=== PATIENT | male | born 1965 | race Two or more races ===

== ENCOUNTER 2019-12-07 10:10 | Outpatient (REF) | payer OTHER, SELFPAY | END 2019-12-07 10:11 | disposition home or self-care (01) | LOC: HO.LAB 10:10 | PROVIDERS: Visit Provider Internal Medicine | DX: Z20.828 Contact with and (suspected) exposure to other viral communicable diseases (principal) | CPT/HCPCS: 87635 ==

== ENCOUNTER 2020-10-10 10:16 | Outpatient (REF) | payer OTHER, SELFPAY ==
--- NOTE | ~2020-10-10 | XR_ITS ---
EXAMINATION: XR KNEE, RIGHT CLINICAL INFORMATION: Pain right knee COMPARISON: None TECHNIQUE: Four views of the right knee. FINDINGS: There is mild to moderate suprapatellar joint effusion. No visible acute fracture, dislocation or lytic process seen. No bony erosive changes. XR/XR knee RT 4V IMPRESSION: Mild to moderate suprapatellar joint effusion. No visible acute fracture, dislocation or lytic process.
== END 2020-10-10 10:17 | disposition home or self-care (01) ==
LOC: HO.HMGCX 10:16
PROVIDERS: PCP Nurse Practitioner Family; Visit Provider Hospitalist
DX: M25.561 Pain in right knee (principal)
CPT/HCPCS: 73564

== ENCOUNTER 2021-08-15 09:45 | Outpatient (REF) | payer OTHER, SELFPAY ==
[2021-08-15 11:14] LABS: MANUAL DIFF FLAG NO
[2021-08-15 11:20] LABS: Appearance Urine CLEAR; Basophils Percent Auto 0.8 % (0-2); Color Urine YELLOW; Eosinophils Absolute Auto 0.1 X10*3/uL (0.0-0.4); Eosinophils Percent Auto 2.1 % (0-4); Glucose Urine UA NEG (NEG); Hematocrit 49.2 % (42.0-52.0); Imm Gran Abs Auto 0.02 X10*3/uL (0.00-0.03); Imm Gran Pct Auto 0.5 % (0.0-0.4); Leukocyte Esterase Urine NEG (NEG); Lymphocytes Absolute Auto 1.4 X10*3/uL (1.2-4.9); Mean Corpuscular HGB Conc 34.6 g/dl (31.0-36.0); Mean Corpuscular Hemoglobin 30.7 pg (27.0-33.0); Mean Corpuscular Volume 88.8 fL (80.0-98.0); Mean Platelet Volume 10.1 fL (9.4-12.4); Monocytes Absolute Auto 0.5 X10*3/uL (0.1-1.2); Monocytes Percent Auto 11.6 % (2-11); Neutrophils Absolute Auto 1.9 x10*3/uL (2.0-8.3); Nitrite Urine NEG (NEG); Platelet Count 213 X10*3/uL (160-400); Red Blood Count 5.54 X10*6/uL (4.60-5.80); Red Cell Distribution Width 12.2 % (11.0-16.0); Specific Gravity - Urine 1.025 (1.005-1.025); UACC Culture Trigger NO; Urine Blood 1+ (NEG); Urine Ketones NEG (NEG); Urine Protein NEG (NEG-TRACE); White Blood Count 3.9 X10*3/uL (4.8-10.8)
[2021-08-15 11:45] LABS: RBC Urine 0-2 /HPF (0); WBC Urine 0 /HPF (0-4)
[2021-08-15 11:50] LABS: Alanine Aminotransferase 16 U/L (0-40); Albumin Level 4.3 g/dL (3.5-5.0); Alkaline Phosphatase 56 U/L (39-117); Anion Gap 10 (12-20); Aspartate Amino Transferase 16 U/L (5-37); Bilirubin Total 1.1 mg/dL (0.0-1.0); Blood Urea Nitrogen 20 mg/dL (9-16); Calcium 8.8 mg/dL (8.4-10.2); Carbon Dioxide 28 mmol/L (22-29); Chloride 106 mmol/L (96-108); Cholesterol 180 mg/dL; Estimated Glomerular Filt Rate > 60; Glucose Fasting 91 mg/dL (60-99); HDL Cholesterol 50 mg/dL; LDL Cholesterol Calculated 117 mg/dl; Prostate Specific Antigen Scr 0.83 ng/mL (<0.05-4.0); Sodium 140 mmol/L (135-145); TSH reflex Free T4 1.07 uIU/mL (0.32-4.0); Total Protein 6.7 g/dL (6.5-8.0); Triglycerides 66 mg/dL
== END 2021-08-15 09:46 | disposition home or self-care (01) ==
LOC: HO.HMGCLDS 09:45
PROVIDERS: PCP Nurse Practitioner Family; Visit Provider Nurse Practitioner Family
DX: Z00.00 Encounter for general adult medical examination without abnormal findings (principal); Z12.5 Encounter for screening for malignant neoplasm of prostate
CPT/HCPCS: 36415; 80053; 80061; 81001; 84153; 84443; 85025

== ENCOUNTER 2021-11-01 09:14 | Outpatient (REF) | payer OTHER, SELFPAY ==
[2021-11-01 11:08] LABS: MANUAL DIFF FLAG NO
[2021-11-01 11:28] LABS: Urine Cytology See Pathology rpt
[2021-11-01 11:33] LABS: Basophils Percent Auto 0.5 % (0-2); Eosinophils Absolute Auto 0.1 X10*3/uL (0.0-0.4); Eosinophils Percent Auto 1.8 % (0-4); Hematocrit 49.8 % (42.0-52.0); Hemoglobin 17.2 g/dl (14.0-18.0); Imm Gran Abs Auto 0.03 X10*3/uL (0.00-0.03); Imm Gran Pct Auto 0.5 % (0.0-0.4); Lymphocytes Absolute Auto 1.6 X10*3/uL (1.2-4.9); Lymphocytes Percent Auto 28.7 % (20-40); Mean Corpuscular HGB Conc 34.5 g/dl (31.0-36.0); Mean Corpuscular Hemoglobin 30.6 pg (27.0-33.0); Mean Corpuscular Volume 88.5 fL (80.0-98.0); Monocytes Absolute Auto 0.5 X10*3/uL (0.1-1.2); Monocytes Percent Auto 9.2 % (2-11); Neutrophils Absolute Auto 3.3 x10*3/uL (2.0-8.3); Neutrophils Percent Auto 59.3 % (45-73); Platelet Count 210 X10*3/uL (160-400); Red Blood Count 5.63 X10*6/uL (4.60-5.80); White Blood Count 5.6 X10*3/uL (4.8-10.8)
[2021-11-01 11:41] LABS: Appearance Urine Clear; Color Urine Yellow; Glucose Urine UA Negative (Negative); Leukocyte Esterase Urine Negative (Negative); Nitrite Urine Negative (Negative); Urine Blood Negative (Negative); Urine Ketones Negative (Negative); Urine Protein Negative (Neg-Trace)
[2021-11-01 11:48] LABS: Bacteria Urine None Seen (None Seen); Hyaline Casts Urine 0-2 /LPF (0-2); RBC Urine 0-2 /HPF (0-2); Squamous Epithelial Cell Urine 0-2 /HPF (0-2); WBC Urine 0-5 /HPF (0-5)
== END 2021-11-01 09:15 | disposition home or self-care (01) ==
LOC: HO.HMGCLDS 09:14
PROVIDERS: PCP Nurse Practitioner Family; Visit Provider Nurse Practitioner Family
DX: Z00.00 Encounter for general adult medical examination without abnormal findings (principal); D72.819 Decreased white blood cell count, unspecified; R31.29 Other microscopic hematuria
CPT/HCPCS: 36415; 81001; 81003; 85025; 87086; 88112

== ENCOUNTER 2022-05-08 06:41 | Emergency (ER) | payer OTHER, SELFPAY ==
--- NOTE | ~2022-05-08 | CT_ITS ---
EXAMINATION: CT ABDOMEN AND PELVIS WITHOUT CONTRAST CLINICAL INFORMATION: Pain COMPARISON: 11/14/2019 TECHNIQUE: Multidetector volumetric imaging was performed from the superior aspect of the liver through the pubic symphysis. Sagittal and coronal reformatted images were obtained on the technologist's workstation. This CT examination was performed using dose optimization techniques as appropriate, variously including the following: *Automated exposure control *Adjustment of mA and/or kV according to patient size (this includes techniques or standardized protocols for targeted exams where dose is matched to indication/reason for exam; i.e. extremities or head) *Use of iterative reconstruction technique DLP: 469 mGy-cm FINDINGS: LUNG BASES: The visualized lung bases are unremarkable. LIVER, GALLBLADDER, AND BILIARY TREE: Small low-density lesion on image 15. Right lobe. Unable to characterize on this noncontrast study. May well be incidental. The gallbladder is unremarkable with no evidence of radiopaque gallstones, gallbladder wall thickening, or obvious pericholecystic inflammatory changes. PANCREAS: Unremarkable. SPLEEN: Unremarkable. ADRENAL GLANDS: Unremarkable. KIDNEYS AND URETERS: No evidence of stone Possible parapelvic cysts versus focal dilatation of collecting system in the mid to lower pole. Left kidney BLADDER: Unremarkable. GASTROINTESTINAL TRACT: The bowel pattern is nonobstructing. Some scattered diverticula. No evidence for diverticulitis. The appendix is felt to be within normal limits. There is no suspicious fluid collection. Small probable hiatal hernia. ABDOMINAL WALL: Once again beginnings of left inguinal herniation. LYMPH NODES: Normal. VASCULAR: Mild atherosclerotic changes PELVIC VISCERA: Mildly prominent prostate OSSEOUS STRUCTURES: Some mild ankylosis in the SI joint superiorly. No evidence for bony lesion. CT/CT abdomen pelvis wo IV con IMPRESSION: The appendix is within normal limits. No suspicious fluid collection. The bowel pattern is nonobstructing. In the mid to lower pole left kidney findings suggest a parapelvic cyst or possible focal dilatation of the lower pole collecting system. Consider ultrasound to fully evaluate. Other findings are as described above Fleischner guidelines were followed.
[2022-05-08 06:51] VITALS: BP 142/88; PULSE 94; RESP 18; TEMP 36.8; O2SAT 99; BMI 28.7
--- NOTE | 2022-05-08 07:51 | ED.MALEGU ---
HPI - Male Genitourinary General Chief complaint: Urogenital-Male Stated complaint: lower groin pain, frequent urination Time Seen by Provider: 05/08/22 07:29 Source: patient and family (Spouse) Mode of arrival: ambulatory Limitations: no limitations History of Present Illness HPI Narrative: 56-year-old male came in for evaluation of right groin pain. Patient's symptoms started about a month ago with a right groin pain that radiating down to the right testicle pain is dull ache is intermittent moderate blood pain radiates down from the right groin area the right upper area. No fever, no chills, no blood in the urine, no flank pain. Related Data Home Medications Medication Instructions Recorded Confirmed No Known Home Meds 10/10/20 08/14/21 Allergies Allergy/AdvReac Type Severity Reaction Status Date / Time No Known Allergies Allergy Unverified 08/14/21 16:23 Review of Systems Review of Systems: All other systems are reviewed and are negative Constitutional: Reports as per HPI and Reports no additional constitutional complaints Eyes: Reports as per HPI and Reports no additional eye complaints Reports system reviewed and no additional complaints, except as documented Cardiovascular: Reports as per HPI and Reports no additional cardiovascular complaints Respiratory: Reports as per HPI and Reports no additional respiratory complaints Gastrointestinal: Reports as per HPI and Reports no additional gastrointestinal complaints Genitourinary: Reports no additional female genitourinary complaints Musculoskeletal: Reports no additional musculoskeletal complaints Skin/Breast: Reports system reviewed and no additional complaints, except as docu Psychiatric: Reports no additional psychiatric complaints Endocrine: Reports no additional endocrine complaints Hematologic/Lymphatic: Reports no additional hematologic/lymphatic complaints Allergic/Immunologic: Reports no additional allergic/immunologic complaints Reports system reviewed and no additional complaints, except as documented and Reports Abnormal speech present [facility] Social History Social History Housing: House Patient Tobacco Use Status: Never used Tobacco Smoked in Last 30 Days: No e-Cigarette/Vaping Use: Never Used Second Hand Smoke Exposure: Yes Use of substances other than those prescribed or required for medical reasons: No Any prior treatment program specific to substance use: No Advance Directives: No Advance Directives Information Provided: Yes service: No Current occupational status: employed Current occupation: [employer] Current occupational exposures/hazards: No Cognitive needs: No Hearing needs: No Vision needs: No Physical Exam Vital Signs: Vital Signs: Last Vital Signs Temp 98.2 F 05/08/22 06:51 Pulse 94 05/08/22 06:51 Resp 18 05/08/22 06:51 BP 142/88 H 05/08/22 06:51 Pulse Ox 99 05/08/22 06:51 O2 Del Method 05/08/22 06:51 BMI result Body Mass Index 28.7 Vital signs have been reviewed as appeared to be correct. Blood pressure normal. Heart rate normal. Respiration rate normal. Temperature normal. Oxygen saturation normal. Appearance: Alert. Oriented X3. No acute distress. Head: Normal external exam. Normocephalic. Atraumatic. No Mcmanus signs noted. No raccoon eyes noted Eyes: PERRLA. EOMI. Conjunctiva and sclera normal. Eyelids normal. ENT: TM's Normal. Pharynx normal. Uvula midline. Moist mucous membranes. No trismus noted. No drooling noted. No muffled voice noted. Neck: Normal inspection. Neck supple. FROM. No adenopathy. Thyroid Normal. No meningeal signs. No neck mass noted. CVS: Normal heart rate and rhythm. Heart sound normal. No murmurs noted. Pulses normal throughout. Respiratory: No respiratory distress. Painless inspiration. Breath sounds normal. No wheezes/rales/rhonchi noted. Chest nontender. No accessory muscle usage noted or decreased air movement noted. Abdomen: Soft and nontender. Bowel sounds normal in all 4 quadrants. No distention noted. No organomegaly noted. No visible injury noted. exam: Uncircumcised, no testicular pain or swelling, intact cremasteric reflex bilaterally. Back: No CVA tenderness. Full range of motion noted. Skin: Skin warm and dry. Normal skin color. Normal skin turgor. No rashes/lesions/lacerations noted. Extremities: No lower extremity edema. Extremities exhibit normal range of motion. Extremities nontender. Neuro: Oriented X 3. Cranial nerve exam: II-XII are grossly intact No motor deficit. No sensory deficit. Reflexes normal. Course Course Course Narrative: 56-year-old male came in for evaluation of right groin pain/right testicular pain for a month. Patient abdomen and pelvis/ exam is unremarkable, CT abdomen and pelvis is unremarkable, patient has unremarkable labs and knee. Medications Administered Discontinued Medications Generic Name Dose Route Start Last Admin Trade Name Freq PRN Reason Stop Dose Admin Sodium Chloride 1,000 mls @ 999 mls/hr 05/08/22 07:49 05/08/22 09:19 Ns IV 05/08/22 08:49 Infused .Q1H1M ONE Infusion Medical Decision Making Differential Diagnosis Differential Diagnoses: The differential diagnosis associated with the presentation includes (Complicated inguinal hernia, inguinal ligament sprain, acute appendicitis, kidney stone, kidney infection.) Lab Data MDM Lab Attestation statement: I reviewed the patient's lab results. 05/08/22 08:19 05/08/22 08:19 Labs: Lab Results 05/08/22 05/08/22 05/08/22 Range/Units 08:19 08:19 08:20 WBC 4.8 (4.8-10.8) X10*3/uL RBC 5.80 (4.60-5.80) X10*6/uL Hgb 17.3 (14.0-18.0) g/dl Hct 50.3 (42.0-52.0) % MCV 86.7 (80.0-98.0) fL MCH 29.8 (27.0-33.0) pg MCHC 34.4 (31.0-36.0) g/dl RDW 12.1 (11.0-16.0) % Plt Count 203 (160-400) X10*3/uL MPV 9.4 (9.4-12.4) fL Immature Gran % (Auto) 0.4 (0.0-0.4) % Neut % (Auto) 56.9 (45-73) % Lymph % (Auto) 31.1 (20-40) % [place] % (Auto) 9.5 (2-11) % Eos % (Auto) 1.5 (0-4) % Baso % (Auto) 0.6 (0-2) % Lymph # (Auto) 1.5 (1.2-4.9) X10*3/uL [place] # (Auto) 0.5 (0.1-1.2) X10*3/uL Eos # (Auto) 0.1 (0.0-0.4) X10*3/uL Baso # (Auto) 0.0 (0.0-0.2) X10*3/uL Abs Immat Gran (auto) 0.02 (0.00-0.03) X10*3/uL Absolute Neuts (auto) 2.7 (2.0-8.3) x10*3/uL Absolute Nucleated RBC 0.000 (0.0-0.012) X10*3/uL Nucleated RBC % (auto) 0.0 (0.0-0.2) /100WBC Sodium 140 (135-145) mmol/L Potassium 4.4 (3.3-5.1) mmol/L Chloride 106 (96-108) mmol/L Carbon Dioxide 27 (22-29) mmol/L Anion Gap 11 L (12-20) BUN 17 H (9-16) mg/dL Creatinine 1.06 (0.5-1.4) mg/dL Estim Creat Clear Calc 78.6 Estimated GFR > 60 Random Glucose 105 (60-115) mg/dL Calcium 9.4 D (8.4-10.2) mg/dL Total Bilirubin 1.1 H (0.0-1.0) mg/dL Direct Bilirubin 0.3 (0.0-0.5) mg/dL AST 15 (5-37) U/L ALT 14 (0-40) U/L Alkaline Phosphatase 55 (39-117) U/L Total Protein 6.5 (6.5-8.0) g/dL Albumin 4.2 (3.5-5.0) g/dL Lipase 22 (8-78) U/L Urine Color Yellow Urine Appearance Clear Urine pH 5.5 (5.0-9.0) Ur Specific [place] 1.025 (1.005-1.025) Urine Protein Negative (Neg-Trace) mg/dL Urine Glucose (UA) Negative (Negative) mg/dL Urine Ketones Negative (Negative) mg/dL Urine Blood Trace H (Negative) Urine Nitrite Negative (Negative) Ur Leukocyte Esterase Negative (Negative) Urine RBC 0-2 (0-2) /HPF Urine WBC 0-5 (0-5) /HPF Ur Squamous Epith Cells 0-2 (0-2) /HPF Urine Bacteria None Seen (None Seen) Hyaline Casts 0-2 (0-2) /LPF Independent Interpretation I performed an independent interpretation of an: CT Scan (Abdomen and pelvis: No acute intracranial pathology, normal appendix.) Radiology Impression Discussion of test interpretation with radiology: I have reviewed the radiologist's reading. Discharge Plan Discharge Clinical Impression: Right groin pain Patient Disposition: Home, Self-Care Instructions: Abdominal Pain (ED) Prescriptions: No Action No Known Home Meds Referrals: Sanjay Iyer FNP-BC [Primary Care Provider] -
[2022-05-08] MEDS: 0.9 % Sodium Chloride 1,000 ML 999 ML IV (08:18)
[2022-05-08 08:32] LABS: MANUAL DIFF FLAG NO
[2022-05-08 08:33] LABS: Basophils Percent Auto 0.6 % (0-2); Eosinophils Absolute Auto 0.1 X10*3/uL (0.0-0.4); Eosinophils Percent Auto 1.5 % (0-4); Hematocrit 50.3 % (42.0-52.0); Hemoglobin 17.3 g/dl (14.0-18.0); Imm Gran Abs Auto 0.02 X10*3/uL (0.00-0.03); Imm Gran Pct Auto 0.4 % (0.0-0.4); Lymphocytes Absolute Auto 1.5 X10*3/uL (1.2-4.9); Lymphocytes Percent Auto 31.1 % (20-40); Mean Corpuscular HGB Conc 34.4 g/dl (31.0-36.0); Mean Corpuscular Hemoglobin 29.8 pg (27.0-33.0); Mean Corpuscular Volume 86.7 fL (80.0-98.0); Mean Platelet Volume 9.4 fL (9.4-12.4); Monocytes Absolute Auto 0.5 X10*3/uL (0.1-1.2); Monocytes Percent Auto 9.5 % (2-11); Neutrophils Absolute Auto 2.7 x10*3/uL (2.0-8.3); Neutrophils Percent Auto 56.9 % (45-73); Platelet Count 203 X10*3/uL (160-400); Red Cell Distribution Width 12.1 % (11.0-16.0); White Blood Count 4.8 X10*3/uL (4.8-10.8)
[2022-05-08 08:34] LABS: Appearance Urine Clear; Color Urine Yellow; Glucose Urine UA Negative (Negative); Leukocyte Esterase Urine Negative (Negative); Nitrite Urine Negative (Negative); PH 5.5 (5.0-9.0); Specific Gravity - Urine 1.025 (1.005-1.025); UMIC TRIGGER UACC YES; Urine Blood Trace (Negative); Urine Ketones Negative (Negative); Urine Protein Negative (Neg-Trace)
[2022-05-08 08:39] LABS: Bacteria Urine None Seen (None Seen); Hyaline Casts Urine 0-2 /LPF (0-2); RBC Urine 0-2 /HPF (0-2); Squamous Epithelial Cell Urine 0-2 /HPF (0-2); WBC Urine 0-5 /HPF (0-5)
[2022-05-08 09:29] LABS: Alanine Aminotransferase 14 U/L (0-40); Albumin Level 4.2 g/dL (3.5-5.0); Alkaline Phosphatase 55 U/L (39-117); Anion Gap 11 (12-20); Aspartate Amino Transferase 15 U/L (5-37); Bilirubin Direct 0.3 mg/dL (0.0-0.5); Bilirubin Total 1.1 mg/dL (0.0-1.0); Blood Urea Nitrogen 17 mg/dL (9-16); Calcium 9.4 mg/dL (8.4-10.2); Carbon Dioxide 27 mmol/L (22-29); Chloride 106 mmol/L (96-108); Creatinine Clr Calc Pharmacy 78.6; Estimated Glomerular Filt Rate > 60; Glucose Random 105 mg/dL (60-115); Lipase 22 U/L (8-78); Potassium 4.4 mmol/L (3.3-5.1); Sodium 140 mmol/L (135-145); Total Protein 6.5 g/dL (6.5-8.0)
== END 2022-05-08 13:04 | disposition home or self-care (01) ==
PROVIDERS: Emergency Provider Emergency Medicine; PCP Nurse Practitioner Family
DX: R10.31 Right lower quadrant pain (principal)
CPT/HCPCS: 36415; 74176; 80048; 80076; 81001; 83690; 85025; 96360; 99284

== ENCOUNTER → 2022-07-25 11:53 | Outpatient (BNVA) | payer OTHER, SELFPAY | PROVIDERS: PCP Nurse Practitioner Family; Visit Provider Physician Assistant ==

== ENCOUNTER → 2022-08-05 09:54 | Outpatient (BNVA) | payer OTHER, SELFPAY | PROVIDERS: PCP Nurse Practitioner Family; Visit Provider Urology | DX: N40.1 Benign prostatic hyperplasia with lower urinary tract symptoms (principal); N28.1 Cyst of kidney, acquired | CPT/HCPCS: 51798 ==

== ENCOUNTER 2022-08-14 08:37 | Outpatient (REF) | payer OTHER, SELFPAY ==
[2022-08-14 11:16] LABS: MANUAL DIFF FLAG NO
[2022-08-14 11:22] LABS: Basophils Percent Auto 0.4 % (0-2); Eosinophils Absolute Auto 0.1 X10*3/uL (0.0-0.4); Hematocrit 50.7 % (42.0-52.0); Hemoglobin 17.1 g/dl (14.0-18.0); Imm Gran Abs Auto 0.02 X10*3/uL (0.00-0.03); Imm Gran Pct Auto 0.4 % (0.0-0.4); Lymphocytes Absolute Auto 1.6 X10*3/uL (1.2-4.9); Lymphocytes Percent Auto 34.6 % (20-40); Mean Corpuscular HGB Conc 33.7 g/dl (31.0-36.0); Mean Corpuscular Hemoglobin 29.9 pg (27.0-33.0); Mean Corpuscular Volume 88.6 fL (80.0-98.0); Mean Platelet Volume 10.2 fL (9.4-12.4); Monocytes Absolute Auto 0.4 X10*3/uL (0.1-1.2); Monocytes Percent Auto 9.5 % (2-11); Neutrophils Absolute Auto 2.4 x10*3/uL (2.0-8.3); Neutrophils Percent Auto 53.1 % (45-73); Platelet Count 225 X10*3/uL (160-400); Red Blood Count 5.72 X10*6/uL (4.60-5.80); Red Cell Distribution Width 12.2 % (11.0-16.0); White Blood Count 4.5 X10*3/uL (4.8-10.8)
[2022-08-14 11:35] LABS: Appearance Urine Clear; Color Urine Yellow; Glucose Urine UA Negative (Negative); Leukocyte Esterase Urine Negative (Negative); Nitrite Urine Negative (Negative); PH 7.5 (5.0-9.0); Urine Blood Negative (Negative); Urine Ketones Negative (Negative); Urine Protein Negative (Neg-Trace)
[2022-08-14 11:52] LABS: Alanine Aminotransferase 15 U/L (0-40); Albumin Level 4.1 g/dL (3.5-5.0); Alkaline Phosphatase 54 U/L (39-117); Anion Gap 7 (12-20); Aspartate Amino Transferase 18 U/L (5-37); Bilirubin Total 1.2 mg/dL (0.0-1.0); Blood Urea Nitrogen 19 mg/dL (9-16); Calcium 9.2 mg/dL (8.4-10.2); Carbon Dioxide 29 mmol/L (22-29); Chloride 104 mmol/L (96-108); Cholesterol 183 mg/dL; Estimated Glomerular Filt Rate > 60; Glucose Fasting 92 mg/dL (60-99); HDL Cholesterol 47 mg/dL; LDL Cholesterol Calculated 117 mg/dl; Potassium 3.8 mmol/L (3.3-5.1); Sodium 136 mmol/L (135-145); Total Protein 6.8 g/dL (6.5-8.0); Triglycerides 99 mg/dL
[2022-08-14 11:56] LABS: Prostate Specific Antigen Scr 1.19 ng/mL (<0.05-4.0)
[2022-08-14 12:10] LABS: TSH reflex Free T4 0.83 uIU/mL (0.32-4.0)
== END 2022-08-14 08:38 | disposition home or self-care (01) ==
LOC: HO.HMGCLDS 08:37
PROVIDERS: PCP Nurse Practitioner Family; Visit Provider Nurse Practitioner Family
DX: Z00.00 Encounter for general adult medical examination without abnormal findings (principal); R35.0 Frequency of micturition; N40.0 Benign prostatic hyperplasia without lower urinary tract symptoms; Z12.5 Encounter for screening for malignant neoplasm of prostate; Z13.29 Encounter for screening for other suspected endocrine disorder; Z13.220 Encounter for screening for lipoid disorders
CPT/HCPCS: 36415; 80053; 80061; 81003; 84153; 84443; 85025

== ENCOUNTER 2022-09-20 08:00 | Outpatient (AMB) | payer OTHER, SELFPAY ==
--- NOTE | 2022-09-20 08:14 | MHC.OFFWIV ---
Intake Vital Signs 09/20/22 08:15 BP 120/80 Blood Pressure Location Rt brachial Position Sitting Pulse 70 Pulse Source Pulse Oximeter Pulse Oximetry (%) 98 Oxygen Delivery Method Room Air Intake Visit Reasons: EP Lower back pain due fall Intake Note: Patient here because he slipped in the rain while being in [place] 1 week ago and hit himself on the side walk, he now has pain and bruising from lower back down to the buttocks. Patient Tobacco Use Status: Never used Tobacco Allergies No Known Allergies Allergy (Verified 09/20/22 08:22) Do you need a note to return to daycare/school/sports/work: No HPI EP Lower back pain due fall HPI Details 56-year-old male presents to the office for a sick visit. Patient was in [place] when he fell. This was 2 weeks ago. He landed on his lower back. He could get up unassisted. Patient is having symptoms of pain and bruising. [facility] Social History Housing: House Patient Tobacco Use Status: Never used Tobacco e-Cigarette/Vaping Use: Never Used Second Hand Smoke Exposure: Yes service: No Current occupational status: employed Current occupation: [employer] Current occupational exposures/hazards: No Cognitive needs: No Hearing needs: No Vision needs: No Physical Exam Vital Signs: Last Vital Signs Pulse 70 09/20/22 08:15 BP 120/80 09/20/22 08:15 Pulse Ox 98 09/20/22 08:15 Oxygen Delivery Method Room Air 09/20/22 08:15 Const General: cooperative and healthy appearing Nutritional Appearance: well nourished Orientation/consciousness: patient oriented x3 Limitations: no limitations HEENT Head: Yes normal to inspection Eyes General: appearance normal, both eyes and all related structures Neck Neck: Yes normal visual inspection Chest Chest palpation & inspection: normal palpation of entire chest wall Resp Effort & Inspection: normal respiratory effort Skin Other: Bruising over the lower back. No tenderness. Full range of motion. Neuro General: patient oriented x3 Assessment & Plan Assessment & Plan (1) Contusion of lower back: Code(s): S30.0XXA - Contusion of lower back and pelvis, initial encounter Plan: X-ray of the sacrum was reviewed by me. No fractures seen. Anti-inflammatory called in. If symptoms not better to follow-up here. Orders: Orders XR sacrum coccyx min 2V Today S30.0XXA - Contusion of lower back and pelvis, initial encounter Coding Level of Care Code Est Pt Level 4 (41242) Diagnoses Contusion of lower back S30.0XXA
[2022-09-20 08:15] VITALS: BP 120/80; PULSE 70; O2SAT 98
== END 2022-09-20 08:58 | disposition home or self-care (01) ==
PROVIDERS: PCP Nurse Practitioner Family; Visit Provider Internal Medicine
DX: S30.0XXA Contusion of lower back and pelvis, initial encounter (principal)
CPT/HCPCS: 99214

== ENCOUNTER 2022-09-20 08:22 | Outpatient (REF) | payer OTHER, SELFPAY ==
--- NOTE | ~2022-09-20 | XR_ITS ---
EXAMINATION: XR SACRUM AND COCCYX CLINICAL INFORMATION: Lower back contusion. COMPARISON: CT scan of the abdomen and pelvis dated 05/08/2022 and lumbar spine radiographs dated 12/23/2013. TECHNIQUE: 2 views of the sacrum and 2 views of the coccyx were obtained. FINDINGS: There are no fractures. No bone, joint or soft tissue abnormality is demonstrated. XR/XR sacrum coccyx min 2V IMPRESSION: Unremarkable examination.
== END 2022-09-20 08:23 | disposition home or self-care (01) ==
LOC: HO.HMGCX 08:22
PROVIDERS: PCP Nurse Practitioner Family; Visit Provider Internal Medicine
DX: S30.0XXA Contusion of lower back and pelvis, initial encounter (principal)
CPT/HCPCS: 72220

== ENCOUNTER 2022-10-22 06:55 | Day surgery (SDC) | payer OTHER, SELFPAY ==
[2022-10-22 07:08] VITALS: BP 112/74; PULSE 86; RESP 18; TEMP 36.2; O2SAT 97; BMI 27.4
[2022-10-22] MEDS: Lactated Ringers 1,000 ML 100 ML IVCONT (07:37)
--- NOTE | 2022-10-22 07:38 | PC.NURSE ---
peaked t wave noted , no chest pain, no sob, no dizziness. Dr. Villalba notified.
--- NOTE | 2022-10-22 07:56 | ECG_ITS ---
Test Reason : pre op Blood Pressure : / mmHG Vent. Rate : 073 BPM Atrial Rate : 073 BPM P-R Int : 162 ms QRS Dur : 112 ms QT Int : 396 ms P-R-T Axes : 022 -19 010 degrees QTc Int : 436 ms Normal sinus rhythm Moderate voltage criteria for LVH, may be normal variant ( R in aVL , [place] product ) Borderline ECG When compared with ECG of 21-MAR-2004 15:57, No significant change was found Referred By: Chucho Villalba Electronically Signed By:ROMELIA LASSITER
--- NOTE | 2022-10-22 08:01 | PC.NURSE ---
12 lead ekg done for peaked t waves, pt asymptomatic
--- NOTE | 2022-10-22 08:25 | P.CONAN_ITS ---
Documented by User: Mayela Parekh NP 10/18/22 10:56 HPI - Anesthesia Eval Consult details Narrative: 56yo M for Upper Endoscopy and Colonoscopy PMF Active Problems Active Problems: All Active Problems (Updated 10/18/22 @ 07:09 by Jenny Luna RN) Right knee pain (Acute) Contact dermatitis (Acute) Physical exam (Acute) Screening PSA (prostate specific antigen) (Acute) Skin lesion (Acute) Microscopic hematuria (Acute) Leukopenia (Acute) Screening for colon cancer (Acute) Enlarged prostate (Acute) Urinary frequency (Acute) Acid reflux (Acute) History of colon polyps (Acute) BPH (benign prostatic hyperplasia) (Acute) BPH loc w urin obs/LUTS (Acute) Parapelvic renal cyst (Acute) Contusion of lower back (Acute) Past Medical History Medical History Castañeda esophagus BPH (benign prostatic hyperplasia) GERD (gastroesophageal reflux disease) H. pylori infection Microscopic hematuria Surgical History Surgical History History of testicular surgery Hx of colonoscopy Hx of esophagogastroduodenoscopy Social History Social History Housing: House Patient Tobacco Use Status: Never used Tobacco e-Cigarette/Vaping Use: Never Used Second Hand Smoke Exposure: Yes Use of substances other than those prescribed or required for medical reasons: No Are you DNR?: No Advance Directives: No Advance Directives Information Provided: Yes service: No Current occupational status: employed Current occupation: [employer] Current occupational exposures/hazards: No Cognitive needs: No Hearing needs: No Vision needs: No Meds Allergies Allergy/AdvReac Type Severity Reaction Status Date / Time No Known Allergies Allergy Verified 09/20/22 08:22 Home Medications Medication Instructions Recorded Confirmed Last Taken Type multivitamin 1 tab PO DAILY 10/18/22 10/18/22 Unknown History omeprazole 40 mg capsule,delayed 40 mg PO DAILY 10/18/22 10/18/22 Unknown History release Exam Exam Date and Time: October 18, 2022 1055 Pertinent Lab Results Pertinent Lab Results: Laboratory Tests 08/14/22 08/14/22 08:45 08:45 WBC 4.5 L Hgb 17.1 Hct 50.7 Plt Count 225 Sodium 136 Potassium 3.8 Chloride 104 Carbon Dioxide 29 BUN 19 H Creatinine 1.01 Assessment and Plan Assessment Anesthesia Assessment: Chart Reviewed Documented by User: Jenny Madrid DO 10/22/22 08:46 [facility] Past Medical History Medical History Castañeda esophagus BPH (benign prostatic hyperplasia) GERD (gastroesophageal reflux disease) H. pylori infection Microscopic hematuria Family History Family history of problems with anesthesia: No Surgical History Surgical History History of testicular surgery Hx of colonoscopy Hx of esophagogastroduodenoscopy History of Problems with Anesthesia: No Social History Social History Housing: House Patient Tobacco Use Status: Never used Tobacco e-Cigarette/Vaping Use: Never Used Second Hand Smoke Exposure: Yes Use of substances other than those prescribed or required for medical reasons: No Are you DNR?: No Advance Directives: No Advance Directives Information Provided: Yes service: No Current occupational status: employed Current occupation: [employer] Current occupational exposures/hazards: No Cognitive needs: No Hearing needs: No Vision needs: No Meds Allergies Allergy/AdvReac Type Severity Reaction Status Date / Time No Known Allergies Allergy Verified 09/20/22 08:22 Home Medications Medication Instructions Recorded Confirmed Last Taken Type multivitamin 1 tab PO DAILY 10/18/22 10/18/22 Unknown History omeprazole 40 mg capsule,delayed 40 mg PO DAILY 10/18/22 10/18/22 Unknown History release Exam Exam Date and Time: October 22, 2022 08 Height,Weight and Vital Signs: Height 5 ft 6 in Weight 77.111 kg Vital Signs Temperature 97.2 F 10/22/22 07:08 Pulse Rate 86 10/22/22 07:08 Respiratory Rate 18 10/22/22 07:08 Blood Pressure 112/74 10/22/22 07:08 Pulse Oximetry 97 10/22/22 07:08 Oxygen Delivery Method Room Air 10/22/22 07:08 Temperature 97.2 F 10/22/22 07:08 Pulse Rate 86 10/22/22 07:08 Respiratory Rate 18 10/22/22 07:08 Blood Pressure 112/74 10/22/22 07:08 Pulse Oximetry 97 10/22/22 07:08 Oxygen Delivery Method Room Air 10/22/22 07:08 Airway Mallampati Class: I TM Dist: >3cm Neck ROM: Full Loose/Missing/Broken Teeth: Yes (missing a few molars) Heart: S1S2 Lungs: CTAB Assessment and Plan Assessment Anesthesia Assessment: Anesthesia Plan Discussed and Chart Reviewed Final Anesthetic Review Family History of Problems with Anesthesia: No History of Problems with Anesthesia: No NPO: Yes ASA Class: II Final Preanesthetic Review: No Changes in Pt Med Stat, Meds/Allgs Chart Reviewed, Consent Obtained/Reviewed and Anes Risks/Benef Reviewed Patient Risk: Low Procedure Risk: Low Anesthetic Plan Anesthetic Plan: MAC: and Agree w/ Assess. and Plan Disposition: Standard PACU
--- NOTE | 2022-10-22 08:31 | MHC.SHP ---
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 Details of Present Illness: see H&P no changes Relevant Family History (Specify if Yes): No Relevant Social History: None Present Medications: see Short Stay Collaborative assessment Medical History: No relevant PMH History of Previous Operations: No relevant previous surgery Allergies: Allergies Allergy/AdvReac Type Severity Reaction Status Date / Time No Known Allergies Allergy Verified 09/20/22 08:22 Review of Systems Sugical H&P ROS: Negative: Constitution, Cardiovascular, Respiratory, Neurological, Psychiatric, Hem-Onc, Allergic/Immunologic, Gastrointestinal, Genitourinary, Musculoskeletal, Integumentary, Endocrine and Eyes/Ears/Nose/Throat Exam Surgical H&P Exam: Normal: HEENT, Normal: Heart, Normal: Lungs, Normal: Extremities, Normal: Abdomen, Normal: Skin and Normal: Neurological Plan Diagnosis/Plan: Unchanged I have reviewed the history and physical and performed a pertinent physical examination on my patient. No changes have occurred unless specified. Time Spent With Patient Time: Total time managing care of this patient today ____ minutes.
--- NOTE | 2022-10-22 09:10 | P.BOP_ITS ---
Brief Operative Note Date of Service: 10/22/22 Pre-op diagnosis: barretts screening Post-op diagnosis: same Surgeon: Doug Zuñiga Anesthesia: MAC Was an Produce Team Lead used for this Procedure?: No Estimated blood loss (mL): 2 Pathology: other Condition: stable Disposition: PACU
[2022-10-22 09:13] VITALS: BP 86/61; PULSE 76; RESP 20; TEMP 36.4; O2SAT 97
[2022-10-22 09:28] VITALS: BP 121/74; PULSE 77; RESP 17; O2SAT 97
[2022-10-22 09:43] VITALS: BP 116/73; PULSE 73; RESP 16; TEMP 36.4; O2SAT 96
--- NOTE | 2022-10-22 09:59 | OP_ITS ---
DATE OF SERVICE: 10/22/2022 SURGEON: Doug Zuñiga MD INDICATIONS: 1. Castañeda esophagus. 2. Colon cancer screening. PREOPERATIVE DIAGNOSIS: POSTOPERATIVE DIAGNOSIS: PROCEDURE PERFORMED: 1. Upper endoscopy with biopsy. 2. Colonoscopy to the terminal ileum. ESTIMATED BLOOD LOSS: COMPLICATIONS: ANESTHESIA: Monitored anesthesia care. ASSISTANTS: SPECIMENS: DESCRIPTION OF PROCEDURE: A history and physical was performed. The risks and benefits of the procedure were explained to the patient and informed consent was obtained. The patient was placed in the left lateral decubitus position. A digital rectal exam was performed prior to the colonoscopy. First, the Olympus video gastroscope was introduced into the esophagus, stomach, and duodenum. Examination was performed. The scope was removed. He was repositioned for colonoscopy. The Olympus video colonoscope was introduced into the rectum and advanced to the cecum. The cecum was identified by transillumination, palpation, and identification of ileocecal valve. Examination was performed. The scope was removed. He tolerated both procedures well, returned to the recovery area in stable condition. FINDINGS: Upper endoscopy: 1. Esophagus: There was a 1 cm area of Castañeda esophagus, which was biopsied. There was some mild associated esophagitis. There were no raised lesions or ulcerated areas otherwise. 2. Stomach: There was a small sliding hiatal hernia. The gastric mucosa appeared normal. Antral biopsies were obtained to evaluate for H pylori. 3. Duodenum: The bulb and second portion were normal. Colonoscopy: The terminal ileum was examined and appeared normal. The visualized colonic mucosa was normal. The quality of the prep was good. No polyps were identified. Retroflexed examination was normal. Internal hemorrhoids were small to moderate in size. IMPRESSION: 1. Castañeda esophagus. 2. Normal colonoscopy. RECOMMENDATIONS: 1. Follow up the biopsy results. 2. Repeat colonoscopy is recommended in 10 years for average risk individuals. MD IGOR Garcia/MODL / [id number]
== END 2022-10-22 10:00 | disposition home or self-care (01) ==
PROVIDERS: PCP Nurse Practitioner Family; Visit Provider Internal Medicine Gastroenterology
PROC: (CPT 45378; principal; 2022-10-22 08:20)
DX: Z12.11 Encounter for screening for malignant neoplasm of colon (principal); K64.8 Other hemorrhoids; Z86.010 Personal history of colon polyps; K22.70 Barrett's esophagus without dysplasia; K22.10 Ulcer of esophagus without bleeding; K44.9 Diaphragmatic hernia without obstruction or gangrene; K21.9 Gastro-esophageal reflux disease without esophagitis; K62.5 Hemorrhage of anus and rectum; Z79.1 Long term (current) use of non-steroidal anti-inflammatories (NSAID); Z79.899 Other long term (current) drug therapy
CPT/HCPCS: 45378; 43239; 88305; 88342; 93005

== ENCOUNTER 2022-11-15 09:49 | Outpatient (REF) | payer OTHER, SELFPAY ==
--- NOTE | ~2022-11-15 | US_ITS ---
EXAMINATION: US RETROPERITONEAL LIMITED (RENAL ONLY) CLINICAL INFORMATION: Benign prostatic hyperplasia without lower urinary tract symptoms. COMPARISON: CT abdomen and pelvis 05/08/2022. TECHNIQUE: Real-time imaging of the kidneys. FINDINGS: RIGHT KIDNEY: 10.5 x 6.0 x 5.7 cm (SAG x AP x TRV). The kidney is normal in size, contour, and echogenicity. Renal cortical thickness is normal. No calculi or focal parenchymal lesions. No hydronephrosis. LEFT KIDNEY: 12.4 x 5.1 x 4.9 cm (SAG x AP x TRV). The kidney is normal in size, contour, and echogenicity. Renal cortical thickness is normal. No renal calculi or hydronephrosis. 1.8 cm and 2.1 cm benign, simple parapelvic cysts are seen, which require no imaging follow-up. URINARY BLADDER: Decompressed and presently not evaluated with ultrasound. US/US renal BI IMPRESSION: Unremarkable examination.
== END 2022-11-15 09:50 | disposition home or self-care (01) ==
LOC: HO.US 09:49
PROVIDERS: PCP Nurse Practitioner Family; Visit Provider Urology
DX: N40.0 Benign prostatic hyperplasia without lower urinary tract symptoms (principal)
CPT/HCPCS: 76775

== ENCOUNTER 2022-11-19 15:20 | Outpatient (REF) | payer OTHER, SELFPAY | END 2022-11-19 15:21 | disposition home or self-care (01) | LOC: HO.HMGCX 15:20 | PROVIDERS: PCP Nurse Practitioner Family; Visit Provider Urology | DX: Z13.89 Encounter for screening for other disorder (principal) | CPT/HCPCS: 76857 ==

== ENCOUNTER 2023-01-28 08:24 | Outpatient (REF) | payer OTHER, SELFPAY | END 2023-01-28 08:25 | disposition home or self-care (01) | LOC: HO.US 08:24 | PROVIDERS: Visit Provider Urology | DX: Z13.89 Encounter for screening for other disorder (principal) ==

== ENCOUNTER 2023-03-03 12:59 | Outpatient (AMB) | payer OTHER, SELFPAY ==
--- NOTE | 2023-03-03 13:09 | A.OFFVIS_ITS ---
Intake Intake Visit Reasons: 6m/US Intake Note: Patient presents today for US Results: Meds: Tamsulosin 0.4mg Allergies to Antibiotic: None Blood Thinner: None Co Pilot Required: Yes Co Pilot Language: Latvian Accompanied by: Self / Same As Patient Allergies No Known Allergies Allergy (Verified 03/20/23 11:35) Medication List - Last Reconciled 03/03/23 by Batsheva Oro MD meloxicam 15 mg PO DAILY multivitamin 1 tab PO DAILY omeprazole 40 mg PO DAILY HPI HPI Comments History of Present Illness Details Ronald is a 56-year-old male who presents to the office FU for BPH. The patient is Latvian speaking male. Certified slubber tender was present during the visit. The patient is on tamsulosin 0.4 mg and has noted benefits and improvement in his voiding symptoms. I have reviewed Renal US (11/15/22) and Bladder US (11/19/22) results are within normal limits; kidneys- left simples cysts, prostate estimated size 29 mL Review of chart: CTAP results reviewed?05/08/22-- kidneys: no evidence of stone. Possible Parapelvic cyst versus focal dilatation of the collecting system in the mid to lower pole of the left kidney. Evaluation today: Blood: trace, leukocytes: negative. Bladder scan--PVR: 0 mL. AUA symptom score: 4. PSA results reviewed?08/15/21?0.83. Plan: Continue tamsulosin 0.4 mg QD. PSA screening PFSH Medical History Microscopic hematuria BPH (benign prostatic hyperplasia) H. pylori infection Castañeda esophagus GERD (gastroesophageal reflux disease) Surgical History History of testicular surgery Hx of colonoscopy Hx of esophagogastroduodenoscopy Social History (Reviewed 03/20/23 @ 12:15 by Sanjay Iyer [facility] House Patient Tobacco Use Status: Never used Tobacco e-Cigarette/Vaping Use: Never Used Second Hand Smoke Exposure: Yes service: No Current occupational status: employed Current occupation: [employer] Current occupational exposures/hazards: No Cognitive needs: No Hearing needs: No Vision needs: No Review of Systems Const All systems reviewed & are unremarkable except as noted in HPI and below Reports no additional complaints Eyes Reports no additional complaints ENT Reports no additional complaints Card Denies dyspnea Resp Denies cough and Denies dyspnea GI Reports no additional complaints Musc Reports no additional complaints Skin/Breast Denies rash and Denies unusual bruising Neuro Reports no additional complaints Psych Reports no additional complaints Endo Reports no additional complaints Anshu/Lymph Reports no additional complaints Aller/Immun Reports no additional complaints Results AMB Urinalysis, Automated UA Leukoctes 0 Ruben/uL Last Edit by Jennifer Fitzgerald [facility] on 03/03/23 13:47 UA Nitrite Negative Last Edit by Jennifer Fitzgerald [facility] on 03/03/23 13:47 UA Urobilinogen 0.2 mg/dL Last Edit by Jennifer Fitzgerald [facility] on 03/03/23 13:4 7 UA Protein 15 mg/dL Last Edit by Jennifer Fitzgerald [facility] on 03/03/23 13:47 UA pH 6.0 Last Edit by Jennifer Fitzgerald [facility] on 03/03/23 13:47 UA Blood 25 Morris/uL Last Edit by Jennifer Fitzgerald [facility] on 03/03/23 13:47 1+ Jennifer Fitzgerald 03/03/23 13:47 UA Specific [place] 1.030 Last Edit by Jennifer Fitzgerald [facility] on 03/03/23 13: 47 UA Ketone Negative Last Edit by Jennifer Fitzgerald [facility] on 03/03/23 13:47 UA Bilirubin 0 mg/dL Last Edit by Jennifer Fitzgerald [facility] on 03/03/23 13:47 UA Glucose 0 mg/dL Last Edit by Jennifer Fitzgerald [facility] on 03/03/23 13:47 Results Reviewed Results Reviewed: Laboratory Last Values Urine pH (Auto) 6.0 03/03/23 13:45 Specific [place] (Auto) 1.030 03/03/23 13:45 Urine Protein (Auto) 15 mg/dL 03/03/23 13:45 Glucose (UA)(Auto) 0 mg/dL 03/03/23 13:45 Urine Ketones (Auto) Negative 03/03/23 13:45 Urine Blood (Auto) 25 Morris/uL 03/03/23 13:45 Urine Nitrite (Auto) Negative 03/03/23 13:45 Urine Bilirubin (Auto) 0 mg/dL 03/03/23 13:45 Urine Urobilinogen (Auto) 0.2 mg/dL 03/03/23 13:45 Leukocyte Esterase (Auto) 0 Ruben/uL 03/03/23 13:45 Date of Service: 11/15/22 EXAMINATION: US RETROPERITONEAL LIMITED (RENAL ONLY) CLINICAL INFORMATION: Benign prostatic hyperplasia without lower urinary tract symptoms. COMPARISON: CT abdomen and pelvis 05/08/2022. TECHNIQUE: Real-time imaging of the kidneys. FINDINGS: RIGHT KIDNEY: 10.5 x 6.0 x 5.7 cm (SAG x AP x TRV). The kidney is normal in size, contour, and echogenicity. Renal cortical thickness is normal. No calculi or focal parenchymal lesions. No hydronephrosis. LEFT KIDNEY: 12.4 x 5.1 x 4.9 cm (SAG x AP x TRV). The kidney is normal in size, contour, and echogenicity. Renal cortical thickness is normal. No renal calculi or hydronephrosis. 1.8 cm and 2.1 cm benign, simple parapelvic cysts are seen, which require no imaging follow-up. URINARY BLADDER: Decompressed and presently not evaluated with ultrasound. IMPRESSION: Unremarkable examination. Date of Service: 11/19/22 EXAMINATION: US PELVIS LIMITED (BLADDER) CLINICAL INFORMATION: Benign prostatic hyperplasia without lower urinary tract symptoms. COMPARISON: Ultrasound retroperitoneal limited (renal only) 11/15/2022. TECHNIQUE: Real-time imaging of the bladder. FINDINGS: BLADDER: Well distended and normal. Bilateral ureteral jets are demonstrated. Prevoid bladder volume is 213 mL. Postvoid bladder volume is 7 mL. OTHER: Prostate dimensions are 3.5 x 3.6 x 3.7 cm, volume 23.9 mL. IMPRESSION: Unremarkable examination. Assessment & Plan Assessment & Plan (1) Screening PSA (prostate specific antigen): Code(s): Z12.5 - Encounter for screening for malignant neoplasm of prostate (2) Renal cyst, acquired, left: Code(s): N28.1 - Cyst of kidney, acquired (3) Parapelvic renal cyst: Code(s): N28.1 - Cyst of kidney, acquired (4) BPH loc w urin obs/LUTS: Code(s): N40.1 - Benign prostatic hyperplasia with lower urinary tract symptoms Plan Cont Tamsulosin PSA screening Orders: Orders AMB Urinalysis Automated 03/03/23 Z13.9 - Encounter for screening, unspecified PSA,Total (Free>4and<10) 10 Months Z12.5 - Encounter for screening for malignant neoplasm of prostate, N40.1 - Benign prostatic hyperplasia with lower urinary tract symptoms, R35.1 - Nocturia Patient Instructions: The patient had an opportunity to ask questions regarding treatment plan. All questions were answered. Imaging, Laboratory studies and physical exam results were discussed and reviewed in detail. No major barriers to understanding were identified. The patient expressed understanding and agreement with the above treatment plan. The patient is aware they should contact our office by phone for worsening of their current condition or the appearance of new symptoms. Compliance is encouraged with any medications and followup testing that is ordered. It is a privilege to be allowed the opportunity to participate in the urologic care of your patient. If you have any questions or concerns regarding treatment for the above conditions please do not hesitate to contact me. The office telephone contact is [phone]. This note is constructed in part using voice recognition software. While every effort has been made to ensure accuracy lay out former errors may have been included. Yours sincerely, Batsheva Oro MD Coding Level of Care Code Est Pt Level 4 (21811) Diagnoses Screening PSA (prostate specific antigen) Z12.5 Renal cyst, acquired, left N28.1 Parapelvic renal cyst N28.1 BPH loc w urin obs/LUTS N40.1
== END 2023-03-03 13:38 | disposition home or self-care (01) ==
PROVIDERS: PCP Nurse Practitioner Family; Visit Provider Urology
DX: Z12.5 Encounter for screening for malignant neoplasm of prostate (principal); N28.1 Cyst of kidney, acquired; N40.1 Benign prostatic hyperplasia with lower urinary tract symptoms
CPT/HCPCS: 99214

== ENCOUNTER → 2023-03-03 12:59 | Outpatient (BNVA) | payer OTHER, SELFPAY | PROVIDERS: PCP Nurse Practitioner Family; Visit Provider Urology | DX: N40.1 Benign prostatic hyperplasia with lower urinary tract symptoms (principal); R35.1 Nocturia; N28.1 Cyst of kidney, acquired; Z79.899 Other long term (current) drug therapy | CPT/HCPCS: 81003 ==

== ENCOUNTER 2023-03-20 11:27 | Outpatient (AMB) | payer OTHER, SELFPAY ==
--- NOTE | 2023-03-20 11:29 | A.OFFPC_ITS ---
Vital Signs 03/20/23 11:30 Height 5 ft 6 in Weight 170 lb 6 oz BMI 27.5 BP 128/86 Blood Pressure Location Rt brachial Position Sitting Pulse 77 Pulse Source Pulse Oximeter Pulse Oximetry (%) 98 Oxygen Delivery Method Room Air Intake Visit Reasons: Annual PE OVERDUE Intake Note: Pt is here for Annual PE Allergies No Known Allergies Allergy (Verified 03/20/23 11:35) Tobacco use date assessed: 03/20/23 Dental Screening Dental Screen Date: 03/20/23 Did you have a dental visit in the last 12 months?: Yes Did you have a dental problem in the last 6 months where you did not have access to dental care?: No Was dental information given to patient?: Patient has dentist HPI Annual PE OVERDUE HPI Details Pt is here for a PE. Will order labs. Colon screen is up to date. PSA is up to date, sees urology. Pt had a left inguinal repaired many years ago. He has another hernia in this spot. Pt will let me know if this gets bigger or causes pain. [facility] Medical History Microscopic hematuria BPH (benign prostatic hyperplasia) H. pylori infection Castañeda esophagus GERD (gastroesophageal reflux disease) Surgical History History of testicular surgery Hx of colonoscopy Hx of esophagogastroduodenoscopy Social History Housing: House Patient Tobacco Use Status: Never used Tobacco e-Cigarette/Vaping Use: Never Used Second Hand Smoke Exposure: Yes service: No Current occupational status: employed Current occupation: [email or web address] Current occupational exposures/hazards: No Cognitive needs: No Hearing needs: No Vision needs: No Questionnaire Thrive Questionnaire Date Thrive assessed: 08/14/21 Currently or been in a relationship where the following occur: no concerns reported THRIVE Score: 0 AUDIT C Alcohol Use Questionnaire (AUDIT-C) 1. How often do you have a drink containing alcohol?: Monthly or less 2. How many drinks containing alcohol do you have on a typical day when you are drinking?: 1 or 2 3. How often do you have six or more drinks on one occasion?: Never Total Score: 1 Score Reviewed/Action Taken: Yes ESDRAS-7 AMB Questionnaire ESDRAS-7 Date ESDRAS - 7 assessed: 08/14/21 Source: Developed by Drs. Sanchez Mesa, Corazon Lund, Gaetano Deshpande and colleagues, with an educational erica from [employer]. Review of Systems Const Denies chills and Denies fever(s) Eyes Denies blurry vision ENT Denies vertigo, Denies dizziness and Denies sore throat Card Denies chest pain at rest, Denies chest pain with activity, Denies diaphoresis, Denies dyspnea and Denies dyspnea on exertion Resp Denies cough, Denies dyspnea, Denies dyspnea on exertion and Denies wheezing GI Denies abdominal pain, Denies melena, Denies hematochezia, Denies constipation, Denies diarrhea and Denies loose stools Denies hematuria Musc Denies numbness and Denies tingling Skin/Breast Denies lesions Neuro Denies vertigo, Denies dizziness, Denies numbness and Denies tingling Psych Denies anxiety, Denies depression, Denies homicidal ideation, Denies suicidal ideation and Denies other (substance abuse) Aller/Immun Denies wheezing Physical exam (Primary Care) Vital Signs: Last Vital Signs Pulse 77 03/20/23 11:30 BP 128/86 03/20/23 11:30 Pulse Ox 98 03/20/23 11:30 Oxygen Delivery Method Room Air 03/20/23 11:30 BMI result Body Mass Index 27.5 Tobacco/Smoking Status: Tobacco use Status Tobacco use date assessed 03/20/23 03/20/23 11:38 Patient Tobacco Use Status Never used Tobacco 03/20/23 11:38 e-Cigarette/Vaping Use Never Used 03/20/23 11:38 Thrive Assessment: Date of Thrive Assessment Date Thrive assessed 08/14/21 03/20/23 11:38 Currently or been in a relationship where the following occur: no concerns reported Const General: cooperative Nutritional Appearance: well nourished Orientation/consciousness: patient oriented x3 HENMT Head: Yes normal to inspection, Yes normocephalic and Yes atraumatic Ears: TM's normal bilaterally Eyes General: appearance normal, both eyes and all related structures Alignment and Position: alignment normal and position normal Neck Neck: Yes normal visual inspection and Yes no lymphadenopathy Thyroid: Thyroid normal Resp Effort & Inspection: normal respiratory effort Auscultation: clear to auscultation bilaterally Cardio Rate: regular rate Rhythm: regular rhythm Heart sounds: S1 normal heart sound present, S2 normal heart sound present and no murmurs GI Palpation (GI): Soft to palpation and nontender Auscultation: normal bowel sounds Male General Exam: Yes normal external exam Penis: normal penis Scrotum: scrotum normal, testes descended bilaterally and inguinal hernia (not overly bulging, not tender) on the left Testes: no testicular mass Skin Rashes: no rashes Neuro General: patient oriented x3, moves all extremities, no focal motor deficits and deep tendon reflexes 2+ bilaterally Romberg Test: Negative Extrem Right lower extremity: no edema Left lower extremity: no edema Psych Appearance: grossly normal Mental Status: mental status grossly normal Speech and movement: Normal speech and movement present Affect: normal affect Attitude: cooperative Thought process: Normal thought process present Thought content: Normal thought content present Insight: Good insight present (Psych) Judgement: Good judgement present (Psych) Assessment and Plan Assessment & Plan (1) Physical exam: Code(s): Z. - Encounter for general adult medical examination without abnormal findings Plan: Labs ordered Plan The patient agreed to the use of a certified medical transcriptionist for this encounter. Scribed for KIRSTIE Tatum by Cara Church certified medical transcriptionist, on 03/20/2023 at 11:40 EST. Orders: Orders Complete Blood Count Auto Diff Today Z00.00 - Encounter for general adult medical examination without abnormal findings Comprehensive [place]. Panel Fast Today Z00.00 - Encounter for general adult medical examination without abnormal findings TSH reflex Free T4 Today Z00.00 - Encounter for general adult medical examination without abnormal findings Lipid Panel Today Z00.00 - Encounter for general adult medical examination without abnormal findings UA CC w/rflx Micro + Cult Today Z00.00 - Encounter for general adult medical examination without abnormal findings Coding Level of Care Code Est Pt Prev Care 40-64y(88274) Diagnoses Physical exam Z00.00
[2023-03-20 11:30] VITALS: BP 128/86; PULSE 77; O2SAT 98; BMI 27.5
== END 2023-03-20 12:01 | disposition home or self-care (01) ==
PROVIDERS: PCP Nurse Practitioner Family; Visit Provider Nurse Practitioner Family
DX: Z00.00 Encounter for general adult medical examination without abnormal findings (principal)
CPT/HCPCS: 99396

== ENCOUNTER 2023-07-11 09:02 | Outpatient (REF) | payer OTHER, SELFPAY ==
[2023-07-11 10:13] LABS: MANUAL DIFF FLAG NO
[2023-07-11 10:40] LABS: Basophils Percent Auto 0.7 % (0-2); Eosinophils Absolute Auto 0.1 X10*3/uL (0.0-0.4); Eosinophils Percent Auto 1.8 % (0-4); Hematocrit 49.9 % (42.0-52.0); Hemoglobin 17.3 g/dl (14.0-18.0); Imm Gran Abs Auto 0.02 X10*3/uL (0.00-0.03); Imm Gran Pct Auto 0.5 % (0.0-0.4); Lymphocytes Absolute Auto 1.5 X10*3/uL (1.2-4.9); Lymphocytes Percent Auto 33.7 % (20-40); Mean Corpuscular HGB Conc 34.7 g/dl (31.0-36.0); Mean Corpuscular Hemoglobin 30.6 pg (27.0-33.0); Mean Corpuscular Volume 88.3 fL (80.0-98.0); Mean Platelet Volume 9.7 fL (9.4-12.4); Monocytes Absolute Auto 0.4 X10*3/uL (0.1-1.2); Monocytes Percent Auto 9.3 % (2-11); Neutrophils Absolute Auto 2.4 x10*3/uL (2.0-8.3); Platelet Count 211 X10*3/uL (160-400); Red Blood Count 5.65 X10*6/uL (4.60-5.80); Red Cell Distribution Width 12.3 % (11.0-16.0); White Blood Count 4.4 X10*3/uL (4.8-10.8)
[2023-07-11 10:48] LABS: Appearance Urine Clear; Color Urine Yellow; Glucose Urine UA Negative (Negative); Leukocyte Esterase Urine Negative (Negative); Nitrite Urine Negative (Negative); Specific Gravity - Urine 1.015 (1.005-1.025); Urine Blood Negative (Negative); Urine Ketones Negative (Negative); Urine Protein Negative (Neg-Trace)
[2023-07-11 11:18] LABS: Alanine Aminotransferase 23 U/L (0-40); Albumin Level 4.3 g/dL (3.5-5.0); Alkaline Phosphatase 54 U/L (39-117); Anion Gap 9 (12-20); Aspartate Amino Transferase 22 U/L (5-37); Bilirubin Total 1.2 mg/dL (0.0-1.0); Blood Urea Nitrogen 14 mg/dL (9-16); Calcium 9.2 mg/dL (8.4-10.2); Carbon Dioxide 30 mmol/L (22-29); Chloride 105 mmol/L (96-108); Cholesterol 182 mg/dL (<200); Estimated Glomerular Filt Rate > 60; Glucose Fasting 100 mg/dL (60-99); HDL Cholesterol 55 mg/dL (>40); LDL Cholesterol Calculated 109 mg/dL (<100); Potassium 3.8 mmol/L (3.3-5.1); Sodium 140 mmol/L (135-145); Total Protein 6.9 g/dL (6.5-8.0); Triglycerides 91 mg/dL (<150)
[2023-07-11 11:34] LABS: TSH reflex Free T4 0.85 uIU/mL (0.32-4.0)
== END 2023-07-11 09:03 | disposition home or self-care (01) ==
LOC: HO.HMGCLDS 09:02
PROVIDERS: PCP Nurse Practitioner Family; Visit Provider Nurse Practitioner Family
DX: Z00.00 Encounter for general adult medical examination without abnormal findings (principal); Z13.6 Encounter for screening for cardiovascular disorders
CPT/HCPCS: 36415; 80053; 80061; 81003; 84443; 85025

== ENCOUNTER 2023-07-29 14:14 | Outpatient (AMB) | payer OTHER, SELFPAY ==
--- NOTE | 2023-07-29 14:19 | MHC.PC.OV ---
Vital Signs 07/29/23 14:22 Height 5 ft 6 in Weight 167 lb BMI 27.0 BP 120/74 Blood Pressure Location Lt brachial Position Sitting Pulse 72 Pulse Source Pulse Oximeter Pulse Oximetry (%) 96 Oxygen Delivery Method Room Air Intake Visit Reasons: Prostrate/Lab f/u Intake Note: Patient here to review labs and discuss frequent urination, waking up very few hours to use the bathroom. Allergies No Known Allergies Allergy (Verified 07/29/23 14:24) Medication List - Last Reconciled 07/29/23 by JACQUELYN Lopez- multivitamin 1 tab PO DAILY omeprazole 40 mg PO DAILY tamsulosin 0.4 mg PO BEDTIME 90 days Tobacco use date assessed: 03/20/23 Dental Screening Dental Screen Date: 03/20/23 HPI Prostrate/Lab f/u HPI Details Pt reports urinary frequency and weak stream. He feels like he is emptying his bladder completely. Pt was taking tamsulosin which helped, but he ran out. Will restart this. Will also order UA and culture. He was seeing urology due to BPH. Pt would like to see a different urologist (male), will reach out to their office. Pt has been drinking a lot of tea, recommended slowing this down especially at night. Denies fever, chills, and hematuria. [facility] Medical History Microscopic hematuria BPH (benign prostatic hyperplasia) H. pylori infection Castañeda esophagus GERD (gastroesophageal reflux disease) Surgical History History of testicular surgery Hx of colonoscopy Hx of esophagogastroduodenoscopy Social History Housing: House Patient Tobacco Use Status: Never used Tobacco e-Cigarette/Vaping Use: Never Used Second Hand Smoke Exposure: Yes service: No Current occupational status: employed Current occupation: [employer] Current occupational exposures/hazards: No Cognitive needs: No Hearing needs: No Vision needs: No Questionnaire PHQ-9 Over the last 2 weeks, how often have you been bothered by any of the following problems? 00053 - PHQ-9 Billing: Patient declined-do not bill Source: Developed by Drs. Sanchez Mesa, Corazon Lund, Gaetano Deshpande and colleagues, with an educational erica from [employer]. Thrive Questionnaire Date Thrive assessed: 07/29/23 I am a: Patient What is your living situation today?: I choose not to answer this question Within the past 12 months, did the food you bought not last and you didn't have the money to get more?: I choose not to answer this question Within the past 12 months, did you worry whether your food would run out before you got money to buy more?: I choose not to answer this question Do you have trouble paying for medicines?: I choose not to answer this question Do you have trouble getting transportation to medical appointments?: I choose not to answer this question Do you have trouble paying your heating and electricity bill?: I choose not to answer this question Do you have trouble taking care of your child, family member or friend?: I choose not to answer this question Do you have trouble with day-to-day activities such as bathing, preparing meals, shopping, managing finances, etc.?: I choose not to answer this question Are you currently unemployed and looking for a job?: I choose not to answer this question Are you interested in more education?: I choose not to answer this question Currently or been in a relationship where the following occur: I choose not to answer this question THRIVE Score: 0 ESDRAS-7 AMB Questionnaire ESDRAS-7 Date ESDRAS - 7 assessed: 07/29/23 Source: Developed by Drs. Sanchez Mesa, Corazon Lund, Gaetano Deshpande and colleagues, with an educational erica from [employer]. ESDRAS-7 Assessment Billing ESDRAS-7 Assessment Tool: pt declined-do not bill Review of Systems Const Reports as per HPI Physical exam (Primary Care) Vital Signs: Last Vital Signs Pulse 72 07/29/23 14:22 BP 120/74 07/29/23 14:22 Pulse Ox 96 07/29/23 14:22 Oxygen Delivery Method Room Air 07/29/23 14:22 BMI result Body Mass Index 27.0 Tobacco/Smoking Status: Tobacco use Status Tobacco use date assessed 03/20/23 07/29/23 14:21 Patient Tobacco Use Status Never used Tobacco 07/29/23 14:21 e-Cigarette/Vaping Use Never Used 07/29/23 14:21 Thrive Assessment: Date of Thrive Assessment Date Thrive assessed 07/29/23 07/29/23 14:59 Currently or been in a relationship where the following occur: I choose not to answer this question Const General: cooperative Orientation/consciousness: patient oriented x3 Resp Effort & Inspection: normal respiratory effort Auscultation: clear to auscultation bilaterally Cardio Rate: regular rate Rhythm: regular rhythm Heart sounds: S1 normal heart sound present and S2 normal heart sound present Neuro General: patient oriented x3 Psych Appearance: grossly normal Mental Status: mental status grossly normal Speech and movement: Normal speech and movement present Affect: normal affect Attitude: cooperative Thought process: Normal thought process present Thought content: Normal thought content present Insight: Good insight present (Psych) Judgement: Good judgement present (Psych) Results AMB Urinalysis, Automated UA Leukoctes 0 Ruben/uL Last Edit by Roosevelt Veras [facility] on 07/29/23 14:58 UA Nitrite Negative Last Edit by SabraXochitl Veras [facility] on 07/29/23 14:58 UA Urobilinogen 0.2 mg/dL Last Edit by SabraXochitl Veras [facility] on 07/29/23 14:58 UA Protein 0 mg/dL Last Edit by SabraXochitl Veras [facility] on 07/29/23 14:58 UA pH 6.0 Last Edit by SabraXochitl Veras [facility] on 07/29/23 14:58 UA Blood 0 Morris/uL Last Edit by Roosevelt Veras [facility] on 07/29/23 14:58 UA Specific [place] 1.005 Last Edit by SabraXochitl Veras [facility] on 07/29/23 14:58 UA Ketone Negative Last Edit by AsbraXochitl Veras [facility] on 07/29/23 14:58 UA Bilirubin 0 mg/dL Last Edit by SabraXochitl Veras [facility] on 07/29/23 14:58 UA Glucose 0 mg/dL Last Edit by SabraXochitl Veras [facility] on 07/29/23 14:58 Results Reviewed Results Reviewed: Laboratory Last Values Urine pH (Auto) 6.0 07/29/23 14:57 Specific [place] (Auto) 1.005 07/29/23 14:57 Urine Protein (Auto) 0 mg/dL 07/29/23 14:57 Glucose (UA)(Auto) 0 mg/dL 07/29/23 14:57 Urine Ketones (Auto) Negative 07/29/23 14:57 Urine Blood (Auto) 0 Morris/uL 07/29/23 14:57 Urine Nitrite (Auto) Negative 07/29/23 14:57 Urine Bilirubin (Auto) 0 mg/dL 07/29/23 14:57 Urine Urobilinogen (Auto) 0.2 mg/dL 07/29/23 14:57 Leukocyte Esterase (Auto) 0 Ruben/uL 07/29/23 14:57 Assessment and Plan Assessment & Plan (1) Urinary frequency: Code(s): R35.0 - Frequency of micturition (2) Enlarged prostate: Code(s): N40.0 - Benign prostatic hyperplasia without lower urinary tract symptoms Plan: tamsulosin restarted, to follow up with urology (male provider) Plan The patient agreed to the use of a mobile paramedical examiner for this encounter. Scribed for JACQUELYN Tatum-BC by calvin Comer scribe, on 07/29/2023 at 14:35 EST. Orders: Orders AMB Urinalysis Automated Today Z13.9 - Encounter for screening, unspecified UA CC w/rflx Micro + Cult Today N40.0 - Benign prostatic hyperplasia without lower urinary tract symptoms, R35.0 - Frequency of micturition Urine Culture Today N40.0 - Benign prostatic hyperplasia without lower urinary tract symptoms, R35.0 - Frequency of micturition Medications: New tamsulosin 0.4 mg PO BEDTIME 90 caps 0RF 90 days Coding Level of Care Code Est Pt Level 3 (41108) Diagnoses Urinary frequency R35.0 Enlarged prostate N40.0
[2023-07-29 14:22] VITALS: BP 120/74; PULSE 72; O2SAT 96; BMI 27.0
== END 2023-07-29 15:07 | disposition home or self-care (01) ==
LOC: HO.HMGC 14:14
PROVIDERS: PCP Nurse Practitioner Family; Visit Provider Nurse Practitioner Family
DX: R35.0 Frequency of micturition (principal); N40.0 Benign prostatic hyperplasia without lower urinary tract symptoms
CPT/HCPCS: 81003; 99213

== ENCOUNTER 2023-07-29 16:26 | Outpatient (REF) | payer OTHER, SELFPAY ==
[2023-07-29 17:21] LABS: Appearance Urine Clear; Color Urine Yellow; Glucose Urine UA Negative (Negative); Leukocyte Esterase Urine Negative (Negative); Nitrite Urine Negative (Negative); PH 6.5 (5.0-9.0); Specific Gravity - Urine <= 1.005 (1.005-1.025); Urine Blood Negative (Negative); Urine Ketones Negative (Negative); Urine Protein Negative (Neg-Trace)
== END 2023-07-29 16:27 | disposition home or self-care (01) ==
LOC: HO.LNP 16:26
PROVIDERS: Visit Provider Nurse Practitioner Family
DX: N40.0 Benign prostatic hyperplasia without lower urinary tract symptoms (principal); R35.0 Frequency of micturition; Z13.9 Encounter for screening, unspecified
CPT/HCPCS: 81003; 87086

== ENCOUNTER 2023-12-03 07:42 | Outpatient (REF) | payer OTHER, SELFPAY ==
[2023-12-03 08:44] LABS: Appearance Urine Clear; Color Urine Yellow; Glucose Urine UA Negative (Negative); Leukocyte Esterase Urine Negative (Negative); Nitrite Urine Negative (Negative); PH 7.5 (5.0-9.0); Urine Blood Negative (Negative); Urine Ketones Negative (Negative); Urine Protein Negative (Neg-Trace)
[2023-12-03 08:50] LABS: Bacteria Urine None Seen (None Seen); Hyaline Casts Urine 0-2 /LPF (0-2); RBC Urine 0-2 /HPF (0-2); Squamous Epithelial Cell Urine 0-2 /HPF (0-2); WBC Urine 0-5 /HPF (0-5)
== END 2023-12-03 07:43 | disposition home or self-care (01) ==
LOC: HO.LAB 07:42
PROVIDERS: Urology; PCP Nurse Practitioner Family; Visit Provider Urology
DX: N40.1 Benign prostatic hyperplasia with lower urinary tract symptoms (principal); R39.9 Unspecified symptoms and signs involving the genitourinary system
CPT/HCPCS: 81001; 87086

== ENCOUNTER 2023-12-11 08:05 | Outpatient (AMB) | payer OTHER, SELFPAY ==
--- NOTE | 2023-12-11 08:15 | AM.OFFWIN_ITS ---
Intake Vital Signs 12/11/23 08:16 Weight 167 lb BP 130/90 H Blood Pressure Location Lt brachial Position Sitting Pulse 62 Pulse Source Pulse Oximeter Pulse Oximetry (%) 98 Oxygen Delivery Method Room Air Intake Visit Reasons: EP pain has a hernia Intake Note: Patient here for left sided hernia in groin area. Patient Tobacco Use Status: Never used Tobacco Allergies No Known Allergies Allergy (Verified 12/11/23 08:16) Do you need a note to return to daycare/school/sports/work: No HPI EP pain has a hernia HPI Details This note is constructed using voice recognition software. While every effort has been made to ensure accuracy, change management manager errors may have been included. The patient is a 58 year old male who presents to the clinic today with left sided inguinal hernia. He reports that he has had surgery to the area in the past. Approximately 5 or 6 months ago he developed a repeat inguinal hernia on the left side, which has since grown over time. As it has grown he has had increased tenderness to the area. He is unable to get an appointment with his primary care team, who sent him to the walk-in for evaluation. He denies any change in his bowel patterns, and is not doing anything for medication to help the pain. [facility] Medical History Microscopic hematuria BPH (benign prostatic hyperplasia) H. pylori infection Castañeda esophagus GERD (gastroesophageal reflux disease) Surgical History History of testicular surgery Hx of colonoscopy Hx of esophagogastroduodenoscopy Social History Housing: House Patient Tobacco Use Status: Never used Tobacco e-Cigarette/Vaping Use: Never Used Second Hand Smoke Exposure: Yes service: No Current occupational status: employed Current occupation: [employer] Current occupational exposures/hazards: No Cognitive needs: No Hearing needs: No Vision needs: No Physical Exam Vital Signs: Last Vital Signs Pulse 62 12/11/23 08:16 BP 130/90 H 12/11/23 08:16 Pulse Ox 98 12/11/23 08:16 Oxygen Delivery Method Room Air 12/11/23 08:16 Const General: cooperative, healthy appearing, comfortable, no acute distress and well developed Orientation/consciousness: patient oriented x3 Limitations: no limitations Resp Effort & Inspection: normal respiratory effort and able to speak in complete sentences GI Other: Left-sided inguinal hernia, tender to palpation, nonreducible. Inspection: Yes normal to inspection Palpation (GI): Soft to palpation Skin General skin exam: no rashes or lesions noted Neuro General: patient oriented x3 Assessment & Plan Assessment & Plan (1) Inguinal hernia of left side without obstruction or gangrene: Code(s): K40.90 - Unilateral inguinal hernia, without obstruction or gangrene, not specified as recurrent Plan: Given patient's increased pain, and growth of the area he will likely benefit from referral to surgery. Message to primary care team to facilitate treatment plan. Coding Level of Care Code Est Pt Level 3 (60343) Diagnoses Inguinal hernia of left side without obstruction or gangrene K40.90
[2023-12-11 08:16] VITALS: BP 130/90; PULSE 62; O2SAT 98
== END 2023-12-11 08:24 | disposition home or self-care (01) ==
PROVIDERS: PCP Nurse Practitioner Family; Visit Provider Registered Nurse
DX: K40.90 Unilateral inguinal hernia, without obstruction or gangrene, not specified as recurrent (principal)

== ENCOUNTER → 2023-12-11 08:05 | Outpatient (BNVA) | payer OTHER, SELFPAY | PROVIDERS: PCP Nurse Practitioner Family; Visit Provider Registered Nurse ==

== ENCOUNTER 2023-12-28 05:42 | Emergency (ER) | payer OTHER, SELFPAY ==
--- NOTE | ~2023-12-28 | CT_ITS ---
EXAMINATION: CT ABDOMEN PELVIS WITH IV CONTRAST CLINICAL INFORMATION: epigastric/ LUQ pain COMPARISON: No prior CT available for comparison. TECHNIQUE: Multidetector volumetric imaging was performed from the superior aspect of the liver through the pubic symphysis 85 mL of Omnipaque 350 injected Sagittal and coronal reformatted images were obtained on the technologist's workstation. This CT examination was performed using dose optimization techniques as appropriate, variously including the following: *Automated exposure control *Adjustment of mA and/or kV according to patient size (this includes techniques or standardized protocols for targeted exams where dose is matched to indication/reason for exam; i.e. extremities or head) *Use of iterative reconstruction technique DLP: 421 mGy-cm FINDINGS: LOWER THORAX: Included lung bases are clear. There is a sliding hiatal hernia. HEPATOBILIARY: No focal hepatic lesions. No biliary ductal dilatation. GALLBLADDER: Gallbladder unremarkable. SPLEEN: Spleen is normal in size. PANCREAS: No focal mass or ductal dilatation. STOMACH AND GASTROINTESTINAL TRACT: Stomach is grossly unremarkable. There is very mild fat stranding surrounding the distal sigmoid colon, suspect mild diverticulitis. No evidence of complication, no abscess, fistula, free air. No CT evidence of appendicitis. ADRENALS: No adrenal nodules. KIDNEYS/URETERS: No hydronephrosis, stones or solid mass lesions. URINARY BLADDER: Partially decompressed. PELVIC VISCERA: Unremarkable PERITONEUM: No free air or fluid. LYMPH NODES: No lymphadenopathy. VASCULAR:Abdominal aorta normal in size, no aneurysm found. BONES, ABDOMINAL WALL AND SOFT TISSUES: Age-appropriate changes of the spine and skeletal system, no destructive osteolytic or osteosclerotic bone lesion found CT/CT abdomen pelvis w IV con IMPRESSION: 1. There is very mild fat stranding surrounding the distal sigmoid colon, suspect mild diverticulitis. No evidence of complication, no abscess, no fistula, no free air. 2. Sliding hiatal hernia. Electronically signed by: Anatoly Beard MD 12/28/2023 08:29 AM AL
[2023-12-28 05:47] VITALS: BP 115/77; PULSE 83; RESP 14; TEMP 36.1; O2SAT 99; BMI 25.5
[2023-12-28 06:20] LABS: Basophils Percent Auto 0.7 % (0-2); Eosinophils Absolute Auto 0.1 X10*3/uL (0.0-0.4); Eosinophils Percent Auto 2.6 % (0-4); Hematocrit 45.8 % (42.0-52.0); Hemoglobin 16.4 g/dl (14.0-18.0); Imm Gran Abs Auto 0.01 X10*3/uL (0.00-0.03); Imm Gran Pct Auto 0.2 % (0.0-0.4); Lymphocytes Absolute Auto 1.4 X10*3/uL (1.2-4.9); Lymphocytes Percent Auto 32.2 % (20-40); MANUAL DIFF FLAG NO; Mean Corpuscular HGB Conc 35.8 g/dl (31.0-36.0); Mean Corpuscular Hemoglobin 30.9 pg (27.0-33.0); Mean Corpuscular Volume 86.4 fL (80.0-98.0); Mean Platelet Volume 9.7 fL (9.4-12.4); Monocytes Absolute Auto 0.4 X10*3/uL (0.1-1.2); Monocytes Percent Auto 10.1 % (2-11); Neutrophils Absolute Auto 2.3 x10*3/uL (2.0-8.3); Neutrophils Percent Auto 54.2 % (45-73); Platelet Count 188 X10*3/uL (160-400); Red Cell Distribution Width 11.9 % (11.0-16.0); White Blood Count 4.3 X10*3/uL (4.8-10.8)
[2023-12-28 06:34] LABS: Alanine Aminotransferase 33 U/L (0-40); Albumin Level 4.2 g/dL (3.5-5.0); Alkaline Phosphatase 54 U/L (39-117); Anion Gap 13 (12-20); Aspartate Amino Transferase 27 U/L (5-37); Bilirubin Total 0.8 mg/dL (0.0-1.0); Blood Urea Nitrogen 20 mg/dL (9-16); Calcium 9.1 mg/dL (8.4-10.2); Carbon Dioxide 25 mmol/L (22-29); Chloride 107 mmol/L (96-108); Estimated Glomerular Filt Rate > 60; Glucose Random 109 mg/dL (60-115); Lipase 25 U/L (8-78); Potassium 4.2 mmol/L (3.3-5.1); Sodium 141 mmol/L (135-145); Total Protein 6.7 g/dL (6.5-8.0)
--- NOTE | 2023-12-28 06:51 | ECG_ITS ---
Test Reason : ABD PAIN Blood Pressure : / mmHG Vent. Rate : 072 BPM Atrial Rate : 072 BPM P-R Int : 166 ms QRS Dur : 114 ms QT Int : 408 ms P-R-T Axes : 034 -18 026 degrees QTc Int : 446 ms Normal sinus rhythm Incomplete right bundle branch block Borderline ECG When compared with ECG of 22-OCT-2022 08:02, No significant change was found Referred By: Zunilda Patel Electronically Signed By:KAROLINA HALEY MD
--- NOTE | 2023-12-28 07:04 | ED.ABDPAIN ---
HPI - Abdominal Pain General Chief Complaint: Abdominal Pain Stated Complaint: stomach pain Time Seen by Provider: 12/28/23 06:31 Source: patient, family, RN notes reviewed and old records reviewed Mode of arrival: ambulatory History of Present Illness ED Provider: Zunilda Patel PA-C HPI narrative: 58-year-old male with a past medical history BPH, H pylori, Castañeda's esophagus, GERD, presenting to the ED complaining of epigastric abdominal pain awakening him from sleep at 03:00. Denies associated fever, chills, nausea, vomiting, diarrhea/constipation, dysuria/hematuria, NSAID or EtOH use. Denies CP/SOB MD elicited complaint: abdominal pain Related Data Home Medications ?Medication ?Instructions ?Recorded ?Confirmed multivitamin 1 tab PO DAILY 10/18/22 07/29/23 omeprazole 40 mg capsule,delayed 40 mg PO DAILY 10/18/22 07/29/23 release Previous Rx's ?Medication ?Instructions ?Recorded tamsulosin 0.4 mg capsule 0.4 mg PO BEDTIME 90 days #90 caps 10/22/23 Allergies Allergy/AdvReac Type Severity Reaction Status Date / Time No Known Allergies Allergy Verified 12/28/23 05:50 Review of Systems Review of Systems Yes all other systems are reviewed and are negative Constitutional: Reports as per [facility] Past Medical History Attestation statement: The following information was validated with the patient. Source: old records reviewed Medical History Microscopic hematuria BPH (benign prostatic hyperplasia) H. pylori infection Castañeda esophagus GERD (gastroesophageal reflux disease) Surgical History History of testicular surgery Hx of colonoscopy Hx of esophagogastroduodenoscopy Social History Social History Housing: House Patient Tobacco Use Status: Never used Tobacco e-Cigarette/Vaping Use: Never Used Second Hand Smoke Exposure: Yes Advance Directives: No Do you have a plan to hurt others: No Plan service: No Current occupational status: employed Current occupation: [employer] Current occupational exposures/hazards: No Cognitive needs: No Hearing needs: No Vision needs: No Physical Exam ED Vital Signs: Vital Signs - 24 hr 12/28/23 05:47 12/28/23 08:19 Temperature 97.0 F 98.3 F Pulse Rate 83 74 Respiratory Rate 14 16 Blood Pressure 115/77 119/70 Pulse Oximetry 99 98 Oxygen Delivery Method Room Air Room Air BMI result Body Mass Index 25.5 Const General: cooperative, healthy appearing and no acute distress Orientation/consciousness: patient oriented x3 Limitations: no limitations HENMT Head: Yes normal to inspection and Yes atraumatic Ears: hearing grossly normal bilaterally General nose exam: Normal external nose present Face and sinus: Yes normal facial exam Eyes General: appearance normal, both eyes and all related structures EOM: EOMs intact bilaterally Neck Neck: Yes normal visual inspection and Yes no meningeal signs Resp Effort & Inspection: normal respiratory effort and no respiratory distress Auscultation: clear to auscultation bilaterally Cardio Rate: regular rate Heart sounds: S1 normal heart sound present and S2 normal heart sound present GI Inspection: Yes normal to inspection Palpation (GI): Soft to palpation, Tenderness to palpation present (GI) in the epigastrum and in the LUQ; with no rebound tenderness, no guarding and not rigid General: Yes no CVA tenderness Back/Spine/Pelvis Back: no CVA tenderness Skin Rashes: no rashes Wounds: no wounds Neuro General: patient oriented x3, tone normal and no meningeal signs Cranial nerves: Yes CN's II-XII intact bilaterally Gait exam (Neuro): Normal gait present Extrem General: Yes normal to inspection Course Course Course Narrative: -902--no leukocytosis. Labs otherwise reassuring. Troponin negative. UA negative CT abdomen pelvis w IV con IMPRESSION: 1. There is very mild fat stranding surrounding the distal sigmoid colon, suspect mild diverticulitis. No evidence of complication, no abscess, no fistula, no free air. 2. Sliding hiatal hernia. > on re-eval patient reports symptomatic improvement Results discussed with patient including worrisome signs and symptoms and strict return precautions, and when to return to the emergency department. They verbalized understanding and feel safe for discharge at this time. Medical Decision Making Medical Decision Making [facility] Narrative: 58-year-old male with a past medical history BPH, H pylori, Castañeda's esophagus, GERD, presenting to the ED complaining of epigastric abdominal pain awakening him from sleep at 03:00. On exam vital signs stable, NAD, nontoxic appearing, abdomen soft with epigastric/RUQ tenderness, no rebound or guarding, no CVAT. Concern for pancreatitis vs GERD vs atypical ACS. Cholecystitis/lithiasis and renal stone on differential. Unlikely diverticulitis/appendicitis Plan: EKG, labs, UA, CT AP, pain management, re-evaluate Please refer to course for remaining clinical decision making, interpretation of labs/imaging results, and discussions with consultants and/or family members. Differential Diagnosis Differential Diagnoses: The differential diagnosis associated with the presentation includes As above Admission/Observation Consideration of admission/observation: Escalation of care including admission/observation considered Lab Data MDM Lab Attestation statement: I reviewed the patient's lab results. 12/28/23 06:16 12/28/23 06:16 Labs: Lab Results 12/28/23 12/28/23 Range/Units 06:16 07:09 WBC 4.3 L (4.8-10.8) X10*3/uL RBC 5.30 (4.60-5.80) X10*6/uL Hgb 16.4 (14.0-18.0) g/dl Hct 45.8 (42.0-52.0) % MCV 86.4 (80.0-98.0) fL MCH 30.9 (27.0-33.0) pg MCHC 35.8 (31.0-36.0) g/dl RDW 11.9 (11.0-16.0) % Plt Count 188 (160-400) X10*3/uL MPV 9.7 (9.4-12.4) fL Immature Gran % (Auto) 0.2 (0.0-0.4) % Neut % (Auto) 54.2 (45-73) % Lymph % (Auto) 32.2 (20-40) % Dolores % (Auto) 10.1 (2-11) % Eos % (Auto) 2.6 (0-4) % Baso % (Auto) 0.7 (0-2) % Lymph # (Auto) 1.4 (1.2-4.9) X10*3/uL Dolores # (Auto) 0.4 (0.1-1.2) X10*3/uL Eos # (Auto) 0.1 (0.0-0.4) X10*3/uL Baso # (Auto) 0.0 (0.0-0.2) X10*3/uL Abs Immat Gran (auto) 0.01 (0.00-0.03) X10*3/uL Absolute Neuts (auto) 2.3 (2.0-8.3) x10*3/uL Absolute Nucleated RBC 0.000 (0.0-0.012) X10*3/uL Nucleated RBC % (auto) 0.0 (0.0-0.2) /100WBC Sodium 141 (135-145) mmol/L Potassium 4.2 (3.3-5.1) mmol/L Chloride 107 (96-108) mmol/L Carbon Dioxide 25 (22-29) mmol/L Anion Gap 13 (12-20) BUN 20 H (9-16) mg/dL Creatinine 1.08 (0.5-1.4) mg/dL Estim Creat Clear Calc 68.0 Estimated GFR > 60 Random Glucose 109 (60-115) mg/dL Calcium 9.1 (8.4-10.2) mg/dL Magnesium 2.4 (1.6-2.6) mg/dL Total Bilirubin 0.8 (0.0-1.0) mg/dL AST 27 (5-37) U/L ALT 33 (0-40) U/L Alkaline Phosphatase 54 (39-117) U/L Troponin I High Sens < 2.7 (<3.5-35.0) ng/L Total Protein 6.7 (6.5-8.0) g/dL Albumin 4.2 (3.5-5.0) g/dL Lipase 25 (8-78) U/L Urine Color Yellow Urine Appearance Clear Urine pH 7.5 (5.0-9.0) Ur Specific [place] 1.020 (1.005-1.025) Urine Protein Negative (Neg-Trace) mg/dL Urine Glucose (UA) Negative (Negative) mg/dL Urine Ketones Negative (Negative) mg/dL Urine Blood Negative (Negative) Urine Nitrite Negative (Negative) Ur Leukocyte Esterase Negative (Negative) Independent Interpretation I performed an independent interpretation of an: EKG and CT Scan Radiology Impression Discussion of test interpretation with radiology: I have reviewed the radiologist's reading. Independent Historian Clinical information obtained from an independent historian. History obtained from or confirmed by: Spouse External Record Review External record reviewed: Inpatient record, Office record, Outpatient record, Prior outpatient labs, Prior outpatient radiology, Primary care record and Outside ED record Tests considered The following testing was considered but not selected: As above Prescription Management I considered prescription management with: Pain Medication Chronic Conditions Patient?s care impacted by: Other Social Determinants Patient?s care significantly limited by Social Determinants of Health including: Other Social Determinant of Health Medications Administered Discontinued Medications Generic Name Dose Route Start Last Admin Trade Name Freq PRN Reason Stop Dose Admin Al Hydroxide/Mg Hydroxide 30 ml 12/28/23 06:51 12/28/23 07:18 Magnesium Hydrox/Alum Hydrox 30 Ml Oral.Susp PO 12/28/23 06:52 30 ml ONCE ONE Administration Famotidine 20 mg 12/28/23 06:51 12/28/23 07:18 Famotidine/Pf 20 Mg/2 Ml Vial IVPUSH 12/28/23 06:52 20 mg ONCE ONE Administration Iohexol 85 ml 12/28/23 07:30 12/28/23 07:31 Iohexol 350 Mg/Ml 75 Ml Infus..Btl IV 12/28/23 07:31 85 ml ONCE ONE Administration Discharge Plan Discharge Clinical Impression: Diverticulitis Patient Disposition: Home, Self-Care Instructions: Diverticulitis (ED), Diverticulitis Diet (ED) Additional Instructions: Your blood work is reassuring. Your CT scan shows mild diverticulitis Augmentin as an antibiotic please take as prescribed until completion Take Tylenol and Motrin as needed for pain If symptoms persist or worsen, pain is unbearable, you have fever, persistent nausea/vomiting return to the emergency department Prescriptions: No Action tamsulosin 0.4 mg capsule 0.4 mg PO BEDTIME 90 Days Qty: 90 2RF multivitamin Tablet 1 tab PO DAILY omeprazole 40 mg Capsule,Delayed Release(Dr/Ec) 40 mg PO DAILY Referrals: [facility] [Provider Group] Sanjay Iyer, PROFESSIONAL PROGRAMMER ANALYST-BC [Primary Care Provider] - 5 days Print Language: Kiswahili
[2023-12-28 07:14] LABS: Magnesium 2.4 mg/dL (1.6-2.6)
[2023-12-28 07:17] LABS: Appearance Urine Clear; Color Urine Yellow; Glucose Urine UA Negative (Negative); Leukocyte Esterase Urine Negative (Negative); Nitrite Urine Negative (Negative); PH 7.5 (5.0-9.0); Urine Blood Negative (Negative); Urine Ketones Negative (Negative); Urine Protein Negative (Neg-Trace)
[2023-12-28] MEDS: Famotidine/PF 20 MG/2 ML VIAL IVPUSH (07:18)
[2023-12-28] MEDS: Magnesium Hydrox/Alum Hydrox 30 ML ORAL.SUSP PO (07:18)
[2023-12-28 07:25] LABS: Troponin-I High Sensitivity < 2.7 ng/L (<3.5-35.0)
[2023-12-28] MEDS: iohexoL 350 MG/ML 75 ML INFUS..BTL 85 ML IV (07:31)
--- NOTE | 2023-12-28 07:38 | PC.NURSE ---
a&ox4. vss and up to date. pt presents to the ED c/o lower generalized abd pain that spreads to RLQ/LLQ. pt reports sx woke him up from his sleep around 0300. pt denies any episodes of n/v/d/fever/chills/urinary sx. pt rating pain a 10/10. 20gIV placed in the right AC - labs obtained/sent to lab. medication administered per provider order - effectiveness pending. urine obtained/sent to lab. pt to CT - results pending. no sob/wob noted. respirations even/unlabored. bedside for support. plan of care ongoing. call diamond placed within reach.
[2023-12-28 08:19] VITALS: BP 119/70; PULSE 74; RESP 16; TEMP 36.8; O2SAT 98
[2023-12-28 09:34] VITALS: BP 112/78; PULSE 76; RESP 18; TEMP 36.3; O2SAT 97
== END 2023-12-28 09:35 | disposition home or self-care (01) ==
PROVIDERS: Physician Assistant; Emergency Provider Emergency Medicine; PCP Nurse Practitioner Family
DX: K57.32 Diverticulitis of large intestine without perforation or abscess without bleeding (principal); R10.13 Epigastric pain; I45.10 Unspecified right bundle-branch block; R94.31 Abnormal electrocardiogram [ECG] [EKG]; R10.2 Pelvic and perineal pain; Z79.899 Other long term (current) drug therapy
CPT/HCPCS: 36415; 74177; 80053; 81003; 83690; 83735; 84484; 85025; 93005; 96374; 99284; Q9967

== ENCOUNTER → 2023-12-28 06:51 | Outpatient (BNV) | payer OTHER, SELFPAY | PROVIDERS: Emergency Provider Emergency Medicine; PCP Nurse Practitioner Family; Visit Provider Internal Medicine Cardiovascular Disease | DX: I45.19 Other right bundle-branch block (principal) | CPT/HCPCS: 93010 ==

== ENCOUNTER 2024-01-14 10:44 | Outpatient (AMB) | payer OTHER, SELFPAY ==
[2024-01-14 10:46] VITALS: BP 118/76; PULSE 81; O2SAT 99; BMI 24.9
--- NOTE | 2024-01-14 10:46 | A.OFFPC_ITS ---
Vital Signs 01/14/24 10:46 Height 5 ft 6 in Weight 154 lb 2 oz BMI 24.9 BP 118/76 Blood Pressure Location Lt brachial Position Sitting Pulse 81 Pulse Source Pulse Oximeter Pulse Oximetry (%) 99 Oxygen Delivery Method Room Air Intake Visit Reasons: ED F/U Allergies No Known Allergies Allergy (Verified 01/14/24 10:46) Tobacco use date assessed: 01/14/24 Dental Screening Dental Screen Date: 01/14/24 Did you have a dental visit in the last 12 months?: Yes Did you have a dental problem in the last 6 months where you did not have access to dental care?: No Was dental information given to patient?: Patient has dentist HPI ED F/U HPI Details History of Present Illness The patient is a 58-year-old male presenting with a history of diverticulitis. Initially, he experienced severe epigastric abdominal pain on 12/28/2023, which awoke him from sleep around 3:00 AM. Symptoms included abdominal pain without associated fevers, chills, nausea, vomiting, diarrhea, constipation, hematuria, or chest pain. He had tenderness upon palpation. Diagnostic work-up included a negative troponin, negative urinalysis, and a CT scan showing mild diverticulitis in the distal sigmoid colon. He was prescribed Augmentin for treatment. Reports no current abdominal pain, fever, chills, nausea, or vomiting. States he can tolerate food and experiences no bowel movement issues. No tenderness observed on current examination. Social History - Denies alcohol use Review of Systems - Respiratory: Denies shortness of breat h - Cardiovascular: Denies chest pain - Gastrointestinal: Reports previous abd ominal pain; Denies current nausea, vomiting, diarrhea, constipation, and hematuria - General: Denies fevers and chills Physical Exam - Cardiovascular- Heart sounds S1 and S2 clear - Respiratory- Lungs clear to auscultati on no tenderness with palpation of ABD Results - Imaging: Abdominal CT scan showed mild diverticulitis in the distal sigmoid colon - Labs: Troponin negative, Urinalysis ne gative Plan - Diverticulitis: Continue monitoring th e patient's tolerance to Augmentin and assess for resolution of symptoms. Encourage dietary management and hydration. Plan for routine follow-up to assess clinical improvement and potential need for adjustments in treatment. Patient was informed and verbally consented to the use of an ambient scribe for clinic note documentation during this visit. Discussion Notes I discussed with the patient the confirmed diagnosis of diverticulitis based on the CT findings and the negative results from troponin and urinalysis. The management includes antibiotic therapy with Augmentin, which the patient is currently tolerating well, in addition to ensuring adequate hydration and dietary measures. I explained that there are no severe complications present and the course is mild. The patient was advised on the importance of adherence to the medication regimen and potential signs that would require immediate medical attention, such as worsening pain or development of fever. No further immediate diagnostic procedures are necessary unless symptoms worsen. Patient Instructions - Continue taking Augmentin as prescribe d - Maintain adequate hydration - Follow dietary recommendations for div erticulitis management - Return for follow-up as scheduled - Seek immediate care if symptoms such a s severe abdominal pain or fever develop PFSH Medical History Microscopic hematuria BPH (benign prostatic hyperplasia) H. pylori infection Castañeda esophagus GERD (gastroesophageal reflux disease) Surgical History History of testicular surgery Hx of colonoscopy Hx of esophagogastroduodenoscopy Social History Housing: House Patient Tobacco Use Status: Never used Tobacco e-Cigarette/Vaping Use: Never Used Second Hand Smoke Exposure: Yes service: No Current occupational status: employed Current occupation: [employer] Current occupational exposures/hazards: No Cognitive needs: No Hearing needs: No Vision needs: No Questionnaire PHQ-9 Over the last 2 weeks, how often have you been bothered by any of the following problems? 13184 - PHQ-9 Billing: Patient declined-do not bill Source: Developed by Drs. Sanchez Mesa, Corazon Lund, Gaetano Deshpande and colleagues, with an educational erica from [employer]. Thrive Questionnaire Date Thrive assessed: 07/29/23 I am a: Patient What is your living situation today?: I choose not to answer this question Within the past 12 months, did the food you bought not last and you didn't have the money to get more?: I choose not to answer this question Within the past 12 months, did you worry whether your food would run out before you got money to buy more?: I choose not to answer this question Do you have trouble paying for medicines?: I choose not to answer this question Do you have trouble getting transportation to medical appointments?: I choose not to answer this question Do you have trouble paying your heating and electricity bill?: I choose not to answer this question Do you have trouble taking care of your child, family member or friend?: I choose not to answer this question Do you have trouble with day-to-day activities such as bathing, preparing meals, shopping, managing finances, etc.?: I choose not to answer this question Are you currently unemployed and looking for a job?: I choose not to answer this question Are you interested in more education?: I choose not to answer this question THRIVE Score: 0 AUDIT C Alcohol Use Questionnaire (AUDIT-C) 1. How often do you have a drink containing alcohol?: Monthly or less 2. How many drinks containing alcohol do you have on a typical day when you are drinking?: 1 or 2 3. How often do you have six or more drinks on one occasion?: Never Total Score: 1 Score Reviewed/Action Taken: Yes ESDRAS-7 AMB Questionnaire ESDRAS-7 Date ESDRAS - 7 assessed: 07/29/23 Source: Developed by Drs. Sanchez Mesa, Corazon Lund, Gaetano Deshpande and colleagues, with an educational erica from [employer]. Physical exam (Primary Care) Vital Signs: Last Vital Signs Pulse 81 01/14/24 10:46 BP 118/76 01/14/24 10:46 Pulse Ox 99 01/14/24 10:46 Oxygen Delivery Method Room Air 01/14/24 10:46 BMI result Body Mass Index 24.9 Tobacco/Smoking Status: Tobacco use Status Tobacco use date assessed 01/14/24 01/14/24 10:48 Patient Tobacco Use Status Never used Tobacco 01/14/24 10:48 e-Cigarette/Vaping Use Never Used 01/14/24 10:48 Thrive Assessment: Date of Thrive Assessment Date Thrive assessed 07/29/23 01/14/24 10:48 Coding Level of Care Code Est Pt Level 3 (91101) Diagnoses Diverticula of colon K57.30 Assessment & Plan Assessment & Plan (1) Diverticula of colon: Code(s): K57.30 - Diverticulosis of large intestine without perforation or abscess without bleeding Category: Medical Plan .
== END 2024-01-14 11:32 | disposition home or self-care (01) ==
PROVIDERS: PCP Nurse Practitioner Family; Visit Provider Nurse Practitioner Family
DX: K57.30 Diverticulosis of large intestine without perforation or abscess without bleeding (principal)

== ENCOUNTER 2024-01-27 10:17 | Outpatient (AMB) | payer OTHER, SELFPAY ==
--- NOTE | 2024-01-27 10:20 | MHC.OFFVIS ---
Vital Signs 01/27/24 10:27 Height 5 ft 6 in Weight 157 lb BMI 25.3 BP 138/78 Blood Pressure Location Rt brachial Position Sitting Pulse 65 Intake Visit Reasons: hernia Intake Note: Patient referred by pcp dr. Iyer for Unilateral hernia. Present for 1yr. Patient c/o: pain on LLQ. Denies nausea, diarrhea, vomiting. CT Abd: 12-28-2023. Hull And Deck Remover Required: No Accompanied by: Eliceo Agrawal spouse Allergies No Known Allergies Allergy (Verified 01/27/24 10:29) HPI Comments Details: Patient presents with his . He has an enlarging symptomatic left inguinal hernia. He has had this a few years time. Because it is symptomatic, he would like to have repaired. He does do heavy lifting at his place of employment. He otherwise tolerates a diet. He is having regular bowel habits. Patient also has some prostate issues which are being addressed by Urology. Chart was reviewed and patient evaluated. Patient had a pediatric surgery for a left inguinal hernia when he was age 15. [facility] Medical History Microscopic hematuria BPH (benign prostatic hyperplasia) H. pylori infection Castañeda esophagus GERD (gastroesophageal reflux disease) Surgical History History of testicular surgery Hx of colonoscopy Hx of esophagogastroduodenoscopy Social History Housing: House Patient Tobacco Use Status: Never used Tobacco e-Cigarette/Vaping Use: Never Used Second Hand Smoke Exposure: Yes service: No Current occupational status: employed Current occupation: [employer] Current occupational exposures/hazards: No Cognitive needs: No Hearing needs: No Vision needs: No Physical Exam Vital Signs: Last Vital Signs Pulse 65 01/27/24 10:27 BP 138/78 01/27/24 10:27 BMI result Body Mass Index 25.3 Chest Other: Chest breath sounds bilaterally, HS 1 in 2 GI Other: Patient was examined both supine and standing with Valsalva. Right groin negative. Left groin demonstrates an old inguinal hernia scar. Moderately sized reducible left inguinal hernia. Assessment & Plan Assessment & Plan (1) Recurrent left inguinal hernia: Code(s): K40.91 - Unilateral inguinal hernia, without obstruction or gangrene, recurrent Category: Surgical Plan Risks, benefits, alternatives of open of the recurrent inguinal hernia repair reviewed with the patient and included but not limited to bleeding, infection, recurrence, numbness, pain, scarring the patient wished to proceed. All questions answered. Arrangements were made for this. Coding Level of Care Code New Pt Level 5 (11879) Diagnoses Recurrent left inguinal hernia K40.91
[2024-01-27 10:27] VITALS: BP 138/78; PULSE 65; BMI 25.3
--- OUTSIDE RECORDS SUMMARY | 2024-01-28 19:48 | XMS_ITS ---
Author Organization [facility] Address [address] [place] [address] Care Team Providers Care Supervisor Type Bar And Segment Name Role Phone MARC WADE Primary Care Provider Jody Zuñiga Jr, Doug Beckman [phone] REASON FOR VISIT Patient presents today for acid reflux Encounters Encounter Location Date Provider Diagnosis [facility] [address] [place] [address] 11/06/2023 Doug Zuñiga Jr PLAN OF TREATMENT Next Appt Details Provider Name:Doug brannon Jr, 02/16/2024 09:40:00 AM, [address], [address], [place], [address],
--- OUTSIDE RECORDS SUMMARY | 2024-01-28 19:48 | XMS_ITS ---
Author Organization [facility] Address [address] [place] [address] Care Team Providers Care Carcass Splitter Name Role Phone MARC WADE Primary Care Provider Jody Zuñiga Jr, Doug Beckman REASON FOR VISIT RECALL DATE? Encounters Encounter Location Date Provider Diagnosis [facility] [address] [place] [address] 10/28/2022 Doug Zuñiga Jr PLAN OF TREATMENT Next Appt Details Provider Name:Doug brannon Jr, 02/16/2024 09:40:00 AM, [address], [address], [place], [address],
--- OUTSIDE RECORDS SUMMARY | 2024-01-28 19:48 | XMS_ITS | Patient Health Record ---
Author Organization [facility] Address [address] [place] [address] Care Team Providers Care Grout Machine Operator Name Role Phone MARC WADE Primary Care Provider Doug Tejada Jr [phone] ALLERGIES No Known Allergies REASON FOR REFERRAL No Information MEDICATIONS Medication SIG (Take, Route, Frequency, Duration) Notes Start Date End Date Status MiraLax (colon prep) 17 GM/SCOOP mixed with Gatorade or Crystal Light Orally begin at 5:00 p.m. the day before the procedure for 1 day 08/28/2022 Active Tamsulosin HCl 0.4 MG 1 capsule Orally O nce a day for 30 day(s) Active Omeprazole 40 MG 1 capsule Orally Onc e a day Active Multivitamin Active Aleve Active IMMUNIZATIONS Vaccine Route Administration Date Status Comme nts Influenza Unknown 08/28/2022 Refused SOCIAL HISTORY Sex Assigned At : Social History Observation Description Sex Assigned At Unknown PROBLEMS Problem Type ICD Code Onset Dates Problem Status W/U Status Risk SNOMED Code Notes Problem Colon cancer screening (Z12.11) Active confirmed 624116447 Problem Rectal bleeding (K62.5) Active confirmed 14650163 Problem Encounter for other preprocedural examination (Z01.818) Active confirmed 66633624 Problem Castañeda's esophagus without dysplasia (K22.70) Active confirmed 395084239 Problem Gastroesophageal reflux disease without esophagitis (K21.9) Active confirmed 307635293 Problem Castañeda esophagus (K22.70) Active confirmed Castañeda esophagus (348494890) Encounters Encounter Location Date Provider Diagnosis [facility] [address] [place] [address] 11/06/2023 Doug Yogesh Jr PLAN OF TREATMENT Future Test Test Name Order Date UPPER GI ENDOSCOPY 05/05/2014 COLONOSCOPY 05/22/2017 UPPER GI ENDOSCOPY 08/28/2022 COLONOSCOPY 08/28/2022 Next Appt Details Provider Name:Dougdawood brannon Jr, 02/16/2024 09:40:00 AM, [address] [place] [address], [address], [place], [address], Insurance Providers Payer Name Payer Address Payer Phone Subscriber Number Group Number Insured Name Patient Relationship to Insured Coverage Start Date Coverage End Date [facility] [address] [place] [address] [phone] [id number] CALI CANELA Self - patient is the insured MEDICAL (GENERAL) HISTORY Medical History History ICD Code Gastroesophageal reflux dise ase, EGD/15, H. pylori and Castañeda's esophagus, one-year followup Colonoscopy 08/06/17, lymphoid polyp, ten -year followup BPH with lower urinary tract symptoms Microscopic hematuria Surgical History Surgery Date(Month/Year) testicle surgery
--- OUTSIDE RECORDS SUMMARY | 2024-01-28 19:48 | XMS_ITS ---
Author Organization [facility] Address [address] [place] [address] Care Team Providers Care Insurance Account Manager Name Role Phone MARC WADE Primary Care Provider Jody Zuñiga Jr, Doug Beckman REASON FOR VISIT pathology Encounters Encounter Location Date Provider Diagnosis [facility] [address] [place] [address] 10/29/2022 Doug Zuñiga Jr PLAN OF TREATMENT Next Appt Details Provider Name:Doug brannon Jr, 02/16/2024 09:40:00 AM, [address] [facility], [address], [place], [address],
== END 2024-01-27 10:33 | disposition home or self-care (01) ==
PROVIDERS: PCP Nurse Practitioner Family; Visit Provider Surgery
DX: K40.91 Unilateral inguinal hernia, without obstruction or gangrene, recurrent (principal)
CPT/HCPCS: 99204

== ENCOUNTER 2024-03-04 09:59 | Outpatient (AMB) | payer OTHER, SELFPAY ==
--- NOTE | 2024-03-04 10:04 | MHC.OFFVIS ---
Intake Visit Reasons: 1Y PSA/PVR(set) Intake Note: Patient is present for 1Y PSA/PVR Urology Medication:TAMSULOSIN Antibiotic Allergy:NONE Blood Thinner:NONE Todays PVR:21ML'S Pilot Control Operator Helper Required: No Allergies No Known Allergies Allergy (Verified 03/04/24 10:05) HPI Comments Details: Ronald is a pleasant Belgian-speaking male. He is a patient of Dr. oCrrea. He is seen in the office for the following urologic conditions - lower urinary tract symptoms Belgian translation provided by qualified medical sonographer Yearly review Has stopped medication Effective emptying with PVR less than 30 cc May follow-up p.r.n. Lower urinary tract symptoms Current medication includes tamsulosin Prior imaging - 12/09 renal bladder within normal limits. Simple cysts. 30 cc prostate. PSA - 03/13 1.5 - on a needs to be checked every couple of years PFSH Medical History Microscopic hematuria BPH (benign prostatic hyperplasia) H. pylori infection Castañeda esophagus GERD (gastroesophageal reflux disease) Surgical History History of testicular surgery Hx of colonoscopy Hx of esophagogastroduodenoscopy Social History Housing: House Patient Tobacco Use Status: Never used Tobacco e-Cigarette/Vaping Use: Never Used Second Hand Smoke Exposure: Yes service: No Current occupational status: employed Current occupation: [email or web address] Current occupational exposures/hazards: No Cognitive needs: No Hearing needs: No Vision needs: No Review of Systems Const Denies chills and Denies fever(s) Card Reports no additional complaints and Denies syncope Resp Denies cough GI Denies abdominal pain and Denies heartburn Reports as per HPI and Denies change in libido Neuro Denies syncope Psych Denies change in libido Endo Denies change in libido Physical Exam Const General: cooperative, healthy appearing, comfortable and no acute distress Orientation/consciousness: patient oriented x3 HEENT Face and sinus: Yes normal facial exam Mouth: moist mucous membranes Neck Neck: Yes normal visual inspection, Yes full ROM and Yes trachea midline Chest Chest palpation & inspection: normal inspection of the chest Resp Effort & Inspection: normal respiratory effort, able to speak in complete sentences and no respiratory distress GI Inspection: Yes normal to inspection Back/Spine/Pelvis Cervical Spine: normal cervical lordosis Thoracic/Lumbar Spine: thoracic and lumbar spine normal to inspection Skin General skin exam: no rashes or lesions noted Neuro General: patient oriented x3, gait normal, tone normal and moves all extremities Extrem General: Yes normal to inspection and Yes capillary refill normal Office Procedures Post Void Residual Post Residual Void Post Void Residual (PVR): 21 [id number] Void Residual by ultrasound Results AMB Urinalysis, Automated UA Leukoctes 0 Ruben/uL Last Edit by ZECHARIAH Lind on 03/04/24 10:18 UA Nitrite Negative Last Edit by Georges Keller CCM on 03/04/24 10:18 UA Urobilinogen 0.2 mg/dL Last Edit by Georges Keller CCM on 03/04/24 10:18 UA Protein 15 mg/dL Last Edit by Georges Keller CCM on 03/04/24 10:18 UA pH 8.5 Last Edit by Georges Keller CCM on 03/04/24 10:18 UA Blood 0 Morris/uL Last Edit by Georges Keller CCM on 03/04/24 10:18 UA Specific [place] 1.005 Last Edit by ZECHARIAH Lind on 03/04/24 10:18 UA Ketone Negative Last Edit by ZECHARIAH Lind on 03/04/24 10:18 UA Bilirubin 0 mg/dL Last Edit by Georges Keller [facility] on 03/04/24 10:18 UA Glucose 0 mg/dL Last Edit by Georges Keller [facility] on 03/04/24 10:18 Results Reviewed Results Reviewed: Laboratory Last Values Urine pH (Auto) 8.5 03/04/24 10:17 Specific [place] (Auto) 1.005 03/04/24 10:17 Urine Protein (Auto) 15 mg/dL 03/04/24 10:17 Glucose (UA)(Auto) 0 mg/dL 03/04/24 10:17 Urine Ketones (Auto) Negative 03/04/24 10:17 Urine Blood (Auto) 0 Morris/uL 03/04/24 10:17 Urine Nitrite (Auto) Negative 03/04/24 10:17 Urine Bilirubin (Auto) 0 mg/dL 03/04/24 10:17 Urine Urobilinogen (Auto) 0.2 mg/dL 03/04/24 10:17 Leukocyte Esterase (Auto) 0 Ruben/uL 03/04/24 10:17 Assessment & Plan Assessment & Plan (1) Microscopic hematuria: Code(s): R31.29 - Other microscopic hematuria Category: Medical (2) BPH (benign prostatic hyperplasia): Code(s): N40.0 - Benign prostatic hyperplasia without lower urinary tract symptoms Category: Medical Plan P.r.n. follow-up Orders: Orders Prostate Specific Antigen 03/01/24 Z12.5 - Encounter for screening for malignant neoplasm of prostate AMB Urinalysis Automated Today Z13.9 - Encounter for screening, unspecified Patient Instructions: Imaging studies, laboratory and physical exam results were discussed and reviewed in detail. No major barriers to patient understanding were identified. An opportunity to ask questions regarding the treatment plan was provided. All questions were answered. The patient expressed understanding and agreement with the above treatment plan. The patient is aware they should contact our office by phone for worsening of their current condition or the appearance of new urologic symptoms. Compliance is encouraged with any medications and followup testing that is ordered. It is a privilege to participate in the urologic care of your patient. If you have any questions or concerns regarding treatment for the above conditions, or other urologic issues, please do not hesitate to contact me. The office telephone contact is [phone]. This note is constructed using voice recognition software. While every effort has been made to ensure accuracy inner tube tuber machine operator errors may have been included. Yours sincerely, Dr Brian Rollins MD, [facility] - Urology Providers of Expert, Compassionate Care for the Genitourinary System Coding Level of Care Code Est Pt Level 4 (48205) Diagnoses Microscopic hematuria R31.29 BPH (benign prostatic hyperplasia) N40.0 CPT Codes Post Residual Void - PVR CPT Code: 83856-Egga Void Residual by ultrasound ([id number])
== END 2024-03-04 10:37 | disposition home or self-care (01) ==
PROVIDERS: PCP Nurse Practitioner Family; Visit Provider Urology
DX: R31.29 Other microscopic hematuria (principal); N40.0 Benign prostatic hyperplasia without lower urinary tract symptoms; Z13.9 Encounter for screening, unspecified
CPT/HCPCS: 99214

== ENCOUNTER → 2024-03-04 09:59 | Outpatient (BNVA) | payer OTHER, SELFPAY | PROVIDERS: PCP Nurse Practitioner Family; Visit Provider Urology | DX: R31.29 Other microscopic hematuria (principal); N40.0 Benign prostatic hyperplasia without lower urinary tract symptoms; Z79.899 Other long term (current) drug therapy | CPT/HCPCS: 51798; 81003 ==

== ENCOUNTER → 2024-03-19 06:05 | Outpatient (BNV) | payer OTHER, SELFPAY | PROVIDERS: PCP Nurse Practitioner Family; Visit Provider Surgery | DX: K40.91 Unilateral inguinal hernia, without obstruction or gangrene, recurrent (principal) | CPT/HCPCS: 49520 ==

== ENCOUNTER 2024-03-19 20:26 | Emergency (ER) | payer OTHER, SELFPAY ==
--- NOTE | 2024-03-19 | ECG_ITS ---
Test Reason : SYNCOPAL EPISODE Blood Pressure : */* mmHG Vent. Rate : 46 BPM Atrial Rate : 46 BPM P-R Int : 150 ms QRS Dur : 112 ms QT Int : 472 ms P-R-T Axes : 50 51 58 degrees QTcB Int : 413 ms Sinus bradycardia Otherwise normal ECG When compared with ECG of 28-Dec-2023 07:10, Vent. rate has decreased by 26 bpm Incomplete right bundle branch block is no longer Present Referred By: Generic ED Physician Electronically Signed By: MELIA MAYA
[2024-03-19 20:32] VITALS: BP 115/52; BP 120/72; PULSE 50; PULSE 51; RESP 16; TEMP 36.5; O2SAT 100; BMI 24.9
[2024-03-19 21:18] VITALS: BP 106/59; PULSE 55; RESP 12; TEMP 36.4; O2SAT 99
--- NOTE | 2024-03-19 22:07 | ED.GENADULT ---
HPI - General Adult General Chief complaint: Syncope Stated complaint: Syncopal episode Time Seen by Provider: 03/19/24 22:07 History of Present Illness ED Provider: Joan PISANO narrative: The patient is a 58-year-old male who had a scheduled outpatient left inguinal hernia repair surgery earlier today. The surgery was in the morning. He was out of the hospital around 11:00. He was prescribed Vicodin for pain. He took a dose of Vicodin at around 17:00. 2 hours later he was in the kitchen when he started to feel lightheaded. He told his who was in the kitchen. She yelled for her son who ran into the kitchen. The patient started faint and they caught him. The patient fainted but did not hit his head or injure himself in any way since his son and caught him. During this episode the patient had no headache, chest pain, shortness of breath, abdominal pain, nausea, vomiting. He does have some pain at the site of his surgery in the left inguinal region. Related Data Home Medications ?Medication ?Instructions ?Recorded ?Confirmed multivitamin 1 tab PO DAILY 10/18/22 03/17/24 omeprazole 40 mg capsule,delayed 40 mg PO DAILY 10/18/22 03/17/24 release Previous Rx's ?Medication ?Instructions ?Recorded tamsulosin 0.4 mg capsule 0.4 mg PO BEDTIME 90 days #90 caps 10/22/23 hydrocodone 5 mg-acetaminophen 325 1 tab PO Q4-6H PRN pain #30 tabs 03/19/24 mg tablet morphine 15 mg immediate release 7.5 mg (1/2 x 15 mg) PO Q6H PRN 03/19/24 tablet pain #10 tabs Allergies Allergy/AdvReac Type Severity Reaction Status Date / Time No Known Allergies Allergy Verified 03/19/24 20:37 Review of Systems Review of Systems: Yes all other systems are reviewed and are negative [facility] Past Medical History Medical History (Updated 03/19/24 @ 23:55 by Sid Franco MD) Diverticulitis Microscopic hematuria BPH (benign prostatic hyperplasia) H. pylori infection Castañeda esophagus GERD (gastroesophageal reflux disease) Surgical History (Updated 03/17/24 @ 10:19 by Maria D Amin RN) Hx of left inguinal hernia repair History of testicular surgery Hx of colonoscopy Hx of esophagogastroduodenoscopy Social History Social History Housing: House Patient Tobacco Use Status: Never used Tobacco Smoked in Last 30 Days: No e-Cigarette/Vaping Use: Never Used Second Hand Smoke Exposure: Yes Use of substances other than those prescribed or required for medical reasons: No Advance Directives: No Advance Directives Information Provided: No service: No Current occupational status: employed Current occupation: [employer] Current occupational exposures/hazards: No Cognitive needs: No Hearing needs: No Vision needs: No Physical Exam ED Vital Signs: Vital Signs - 24 hr 03/19/24 20:32 03/19/24 21:18 03/19/24 21:18 Temperature 97.7 F 97.6 F Pulse Rate 51 55 Respiratory Rate 16 12 Blood Pressure 115/52 L 106/59 L Pulse Oximetry 100 99 99 Oxygen Delivery Method Room Air Room Air Room Air 03/19/24 23:32 03/20/24 00:03 03/20/24 00:04 Temperature 98.0 F 98.0 F Pulse Rate 67 61 61 Respiratory Rate 15 14 14 Blood Pressure 97/59 L 98/57 L 98/57 L Pulse Oximetry 99 98 98 Oxygen Delivery Method Room Air Room Air Room Air BMI result Body Mass Index 24.9 Const Other: The patient is awake and alert. He looks somewhat washed out and tired but not in acute distress. He denied any pain. There was no respiratory embarrassment. HENMT Other: Face is symmetrical. Mucous membranes moist. Eyes Other: Pupils are round equal, conjunctivae clear, extraocular movements intact Neck Neck: Yes full ROM Resp Effort & Inspection: normal respiratory effort Auscultation: clear to auscultation bilaterally Cardio Rate: regular rate Rhythm: regular rhythm Heart sounds: S1 normal heart sound present and S2 normal heart sound present GI Other: Abdomen is soft and nontender Skin Other: Skin was pale and dry Neuro Other: The patient looks tired but is awake and alert, oriented and appropriate. Cranial nerves 2-12 are intact. He moves his extremities symmetrically. Medications Administered Discontinued Medications Generic Name Dose Route Start Last Admin Trade Name Freq PRN Reason Stop Dose Admin Sodium Chloride 1,000 mls @ 999 mls/hr 03/19/24 22:30 03/19/24 23:12 Ns IV 03/19/24 23:30 Infused .Q1H1M DAYSI Infusion Ketorolac Tromethamine 10 mg 03/19/24 23:13 03/19/24 23:31 Ketorolac Tromethamine 15 Mg/Ml Vial IVPUSH 03/19/24 23:14 10 mg ONCE ONE Administration Medical Decision Making Medical Decision Making [facility] Narrative: The patient is a 58-year-old male who had left inguinal surgery this morning. This afternoon he had some postoperative pain and took a dose of Vicodin. The patient is not have a history of any narcotic or opioid use in the past. 2 hours after taking the Vicodin he was in the kitchen of his home when he felt lightheaded and told his that he felt he was going to faint. She called his son and the son and the caught the patient when he fainted. He did not sustain any injuries because he has been caught by his and son. They then called an ambulance and he was brought here. This syncope was not associated with any headache. It was not associated with any chest pain or shortness of breath. Was not associated with any abdominal pain. He does have some pain at the surgical site in his left groin however. I think that this was likely a case of syncope caused by the patient being unaccustomed to narcotics in the setting of recent surgery. He was given a L of IV fluids. Was given a dose of ketorolac for his postsurgical pain. He felt better and I think he was likely safe for discharge. Lab Data 03/19/24 22:27 03/19/24 22:27 Labs: Lab Results 03/19/24 Range/Units 22:27 WBC 9.5 (4.8-10.8) X10*3/uL RBC 4.58 L (4.60-5.80) X10*6/uL Hgb 14.1 (14.0-18.0) g/dl Hct 40.2 L (42.0-52.0) % MCV 87.8 (80.0-98.0) fL MCH 30.8 (27.0-33.0) pg MCHC 35.1 (31.0-36.0) g/dl RDW 12.3 (11.0-16.0) % Plt Count 162 (160-400) X10*3/uL MPV 9.8 (9.4-12.4) fL Immature Gran % (Auto) 0.3 (0.0-0.4) % Neut % (Auto) 82.3 H (45-73) % Lymph % (Auto) 8.3 L (20-40) % Walsh % (Auto) 8.4 (2-11) % Eos % (Auto) 0.4 (0-4) % Baso % (Auto) 0.3 (0-2) % Lymph # (Auto) 0.8 L (1.2-4.9) X10*3/uL Walsh # (Auto) 0.8 (0.1-1.2) X10*3/uL Eos # (Auto) 0.0 (0.0-0.4) X10*3/uL Baso # (Auto) 0.0 (0.0-0.2) X10*3/uL Abs Immat Gran (auto) 0.03 (0.00-0.03) X10*3/uL Absolute Neuts (auto) 7.8 (2.0-8.3) x10*3/uL Absolute Nucleated RBC 0.000 (0.0-0.012) X10*3/uL Nucleated RBC % (auto) 0.0 (0.0-0.2) /100WBC Sodium 142 (135-145) mmol/L Potassium 4.4 (3.3-5.1) mmol/L Chloride 109 H (96-108) mmol/L Carbon Dioxide 26 (22-29) mmol/L Anion Gap 11 L (12-20) BUN 24 H (9-16) mg/dL Creatinine 0.91 (0.5-1.4) mg/dL Estim Creat Clear Calc 80.8 Estimated GFR > 60 Random Glucose 116 H (60-115) mg/dL Calcium 8.6 (8.4-10.2) mg/dL Discharge Plan Discharge Clinical Impression: Syncope Patient Disposition: Home, Self-Care Additional Instructions: Rest and take it easy tonight. Drink lot of fluids. Change positions slowly. You may use acetaminophen (Tylenol) as needed for pain. You may take 1000 mg (2 extra-strength tablets) per dose. You may take this 3 times per day as needed. Since you seemed to has been very sensitive to the hydrocodone you were previously prescribed I have sent morphine tablets has an alternative. I would start with a half a tablet per dose to see if you can tolerate this. Please stay in touch with your surgeon for additional advice as needed. Follow up with him as scheduled. Return to the emergency room if you feel significantly worse. Prescriptions: New morphine 15 mg tablet 7.5 mg PO Q6H PRN (Reason: pain) Qty: 10 0RF Rx Instructions: Partial Fill upon patient request. No Action tamsulosin 0.4 mg capsule 0.4 mg PO BEDTIME 90 Days Qty: 90 2RF hydrocodone-acetaminophen 5-325 mg tablet 1 tab PO Q4-6H PRN (Reason: pain) Qty: 30 0RF Rx Instructions: Partial Fill upon patient request. multivitamin Tablet 1 tab PO DAILY omeprazole 40 mg Capsule,Delayed Release(Dr/Ec) 40 mg PO DAILY Interventions: ED Discharge Assessment Last Done: 03/20/24 00:04 Discharge Date/Time: 03/20/24 00:09 Print Language: Upper Sorbian
[2024-03-19] MEDS: 0.9 % Sodium Chloride 1,000 ML 999 ML IV (22:21)
[2024-03-19 22:30] LABS: MANUAL DIFF FLAG NO
[2024-03-19 22:32] LABS: Basophils Percent Auto 0.3 % (0-2); Eosinophils Percent Auto 0.4 % (0-4); Hematocrit 40.2 % (42.0-52.0); Hemoglobin 14.1 g/dl (14.0-18.0); Imm Gran Abs Auto 0.03 X10*3/uL (0.00-0.03); Imm Gran Pct Auto 0.3 % (0.0-0.4); Lymphocytes Absolute Auto 0.8 X10*3/uL (1.2-4.9); Lymphocytes Percent Auto 8.3 % (20-40); Mean Corpuscular HGB Conc 35.1 g/dl (31.0-36.0); Mean Corpuscular Hemoglobin 30.8 pg (27.0-33.0); Mean Corpuscular Volume 87.8 fL (80.0-98.0); Mean Platelet Volume 9.8 fL (9.4-12.4); Monocytes Absolute Auto 0.8 X10*3/uL (0.1-1.2); Monocytes Percent Auto 8.4 % (2-11); Neutrophils Absolute Auto 7.8 x10*3/uL (2.0-8.3); Neutrophils Percent Auto 82.3 % (45-73); Platelet Count 162 X10*3/uL (160-400); Red Blood Count 4.58 X10*6/uL (4.60-5.80); Red Cell Distribution Width 12.3 % (11.0-16.0); White Blood Count 9.5 X10*3/uL (4.8-10.8)
[2024-03-19 22:43] LABS: Anion Gap 11 (12-20); Blood Urea Nitrogen 24 mg/dL (9-16); Calcium 8.6 mg/dL (8.4-10.2); Carbon Dioxide 26 mmol/L (22-29); Chloride 109 mmol/L (96-108); Creatinine Clr Calc Pharmacy 80.8; Estimated Glomerular Filt Rate > 60; Glucose Random 116 mg/dL (60-115); Potassium 4.4 mmol/L (3.3-5.1); Sodium 142 mmol/L (135-145)
[2024-03-19] MEDS: Ketorolac Tromethamine 15 MG/ML VIAL 10 MG IVPUSH (23:31)
[2024-03-19 23:32] VITALS: BP 97/59; PULSE 67; RESP 15; O2SAT 99
[2024-03-20 00:03] VITALS: BP 98/57; PULSE 61; RESP 14; TEMP 36.7; O2SAT 98
[2024-03-20 00:04] VITALS: BP 98/57; PULSE 61; RESP 14; TEMP 36.7; O2SAT 98
== END 2024-03-20 00:09 | disposition home or self-care (01) ==
PROVIDERS: Emergency Provider Emergency Medicine
DX: R55 Syncope and collapse (principal); R07.89 Other chest pain; R51.9 Headache, unspecified; R06.02 Shortness of breath; R10.2 Pelvic and perineal pain; R11.2 Nausea with vomiting, unspecified; R42 Dizziness and giddiness; Z79.899 Other long term (current) drug therapy
CPT/HCPCS: 36415; 80048; 85025; 93005; 96361; 96374; 99284; 99285; J1885

== ENCOUNTER → 2024-03-19 20:37 | Outpatient (BNV) | payer OTHER, SELFPAY | PROVIDERS: Emergency Provider Emergency Medicine; Visit Provider Internal Medicine | DX: R00.0 Tachycardia, unspecified (principal); R55 Syncope and collapse | CPT/HCPCS: 93010 ==

== ENCOUNTER 2024-03-29 08:54 | Outpatient (AMB) | payer OTHER, SELFPAY ==
--- NOTE | 2024-03-29 08:58 | MHC.OFFVIS ---
Intake Visit Reasons: S/P LIH w/mesh Intake Note: Patient here s/p open left inguinal herniorrhaphy with Bard mesh. Reports incision healing well. Patient c/o: noticed mild oozing, irritated when slept on lt side. Taking pain meds as needed. Surgery: 03-19-2024 Double Needle Operator Required: No Accompanied by: Spouse Allergies No Known Allergies Allergy (Verified 03/29/24 09:03) HPI Comments Details: Patient presents with a family member. Aside from incisional discomfort he is doing well. He is tolerating a diet. Having regular bowel habits. Slowly but steadily increasing his activity level. [facility] Medical History (Updated 03/21/24 @ 00:00 by Priya Roque) Diverticulitis Microscopic hematuria BPH (benign prostatic hyperplasia) H. pylori infection Castañeda esophagus GERD (gastroesophageal reflux disease) Surgical History (Updated 03/29/24 @ 09:10 by Huber Romero MD) Recurrent left inguinal hernia (03/19/24) Hx of left inguinal hernia repair History of testicular surgery Hx of colonoscopy Hx of esophagogastroduodenoscopy Social History Housing: House Patient Tobacco Use Status: Never used Tobacco e-Cigarette/Vaping Use: Never Used Second Hand Smoke Exposure: Yes service: No Current occupational status: employed Current occupation: [employer] Current occupational exposures/hazards: No Cognitive needs: No Hearing needs: No Vision needs: No Physical Exam GI Other: Abdomen is soft incision clean dry and intact healing very well Assessment & Plan Assessment & Plan (1) Status post inguinal hernia repair using synthetic patch: Code(s): Z98.890 - Other specified postprocedural states; Z87.19 - Personal history of other diseases of the digestive system Category: Medical Plan Patient and family member have been given local instructions including avoiding strenuous activities and patient otherwise follow-up p.r.n.. All questions answered. Coding Level of Care Code Global (50712) Diagnoses Status post inguinal hernia repair using synthetic patch Z98.890; Z87.19
== END 2024-03-29 09:09 | disposition home or self-care (01) ==
PROVIDERS: PCP Nurse Practitioner Family; Visit Provider Surgery
DX: Z98.890 Other specified postprocedural states (principal); Z87.19 Personal history of other diseases of the digestive system
CPT/HCPCS: 99024

== ENCOUNTER 2024-04-15 10:14 | Outpatient (AMB) | payer OTHER, SELFPAY ==
[2024-04-15 10:39] VITALS: BP 110/76; PULSE 68; O2SAT 97; BMI 24.2
--- NOTE | 2024-04-15 10:39 | MHC.PC.OV ---
Vital Signs 04/15/24 10:39 Height 5 ft 6 in Weight 150 lb BMI 24.2 BP 110/76 Blood Pressure Location Lt brachial Position Sitting Pulse 68 Pulse Source Pulse Oximeter Pulse Oximetry (%) 97 Oxygen Delivery Method Room Air Intake Visit Reasons: Annual PE Intake Note: pt is here for PE Bench Shear Operator Required: No Accompanied by: Self / Same As Patient Allergies No Known Allergies Allergy (Verified 04/15/24 10:39) Tobacco use date assessed: 04/15/24 Dental Screening Dental Screen Date: 04/15/24 Did you have a dental visit in the last 12 months?: Yes Did you have a dental problem in the last 6 months where you did not have access to dental care?: No Was dental information given to patient?: Patient has dentist HPI Annual PE HPI Details History of Present Illness The patient is a 58-year-old male presenting for his annual physical examination. He underwent left inguinal hernia repair recently and reports mild tenderness at the surgical site but denies associated symptoms of infection. There is no noticeable erythema or warmth, and the swelling is minimal. Additionally, the patient has a history of microhematuria and BPH, and after a period of specialist evaluation, it was determined that no further intervention is required at this time. The patient is currently asymptomatic with respect to urinary output and general abdominal complaints. Health Maintenance colon screen up to date Social History Review of Systems - Gastrointestinal: Denies blood in stool, constipation, diarrhea. - Urinary: Denies current urinary problems. - Neurological/Psychiatric: Denies blurred vision, anxiety, depression, suicidal, or homicidal ideation. Physical Exam General: Cooperative, healthy appearing, comfortable, no acute distress and well developed Orientation: Patient oriented x3 Limitations: No limitations Head: Normal to inspection Ears: Hearing grossly normal bilaterally Nose: Normal external nose present Face and sinus: Normal facial exam Eyes: Appearance normal, both eyes and all related structures Neck: Normal visual inspection and Yes full ROM Respiratory: Normal respiratory effort and able to speak in complete sentences. Clear to auscultation bilaterally Cardiovascular: Regular rate and rhythm. Normal S1 and S2 GI: Normal to inspection. Soft to palpation and nontender, except for some tenderness in the left inguinal region with minimal swelling, no erythema, and no warmth (no s/s of infection) Skin: No rashes or lesions noted Neuro: Patient oriented x3 Extremities: Normal to inspection Results Plan I will keep the surgical site of the left inguinal hernia under observation for any signs of infection or complications, given the current tenderness and minimal swelling. For the microhematuria and benign prostatic hyperplasia, I will continue monitoring symptoms closely, with a focus on tracking PSA levels as indicators for potential prostate concerns. Discussion Notes During this visit, we reviewed the current state of the repaired left inguinal hernia, discussing symptoms to monitor such as increased tenderness or signs of infection. We agreed to keep an eye on these aspects without immediate intervention. In terms of urological health, I outlined the plan to periodically review the PSA levels and to observe for any notable changes given the history of microhematuria and BPH. The patient expressed understanding and agreement with the outlined monitoring strategy. Patient Instructions - Monitor the surgical site for any increased tenderness or signs of infection, including increased redness, swelling, or warmth. - Report any new symptoms related to urinary function or abdominal discomfort. - Follow up for regular PSA level checks to monitor prostate health. [facility] Medical History Diverticulitis Microscopic hematuria BPH (benign prostatic hyperplasia) H. pylori infection Castañeda esophagus GERD (gastroesophageal reflux disease) Surgical History Recurrent left inguinal hernia (03/19/24) Hx of left inguinal hernia repair History of testicular surgery Hx of colonoscopy Hx of esophagogastroduodenoscopy Social History Housing: House Patient Tobacco Use Status: Never used Tobacco e-Cigarette/Vaping Use: Never Used Second Hand Smoke Exposure: Yes service: No Current occupational status: employed Current occupation: [employer] Current occupational exposures/hazards: No Cognitive needs: No Hearing needs: No Vision needs: No Questionnaire PHQ-9 Over the last 2 weeks, how often have you been bothered by any of the following problems? 1. Little interest or pleasure in doing things: not at all 2. Feeling down, depressed, or hopeless: not at all 3. Trouble falling or staying asleep, or sleeping too much: not at all 4. Feeling tired or having little energy: not at all 5. Poor appetite or overeating: not at all 6. Feeling bad about yourself - or that you are a failure or have let yourself or your family down: not at all 7. Trouble concentrating on things, such as reading the newspaper or watching television: not at all 8. Moving or speaking so slowly that other people could have noticed. Or the opposite - being so fidgety or restless that you have been moving around a lot more than usual: not at all 9. Thoughts that you would be better off or of hurting yourself in some way: not at all Total score: 0 Depression Screening Interpretation: Negative Depression Screening Done: Yes 64856 - PHQ-9 Billing: Yes Source: Developed by Drs. Sanchez Mesa, Corazon Lund, Gaetano Deshpande and colleagues, with an educational erica from [employer] Thrive Questionnaire Date Thrive assessed: 04/15/24 I am a: Patient What is your living situation today?: I choose not to answer this question Within the past 12 months, did the food you bought not last and you didn't have the money to get more?: I choose not to answer this question Within the past 12 months, did you worry whether your food would run out before you got money to buy more?: I choose not to answer this question Do you have trouble paying for medicines?: I choose not to answer this question Do you have trouble getting transportation to medical appointments?: I choose not to answer this question Do you have trouble paying your heating and electricity bill?: I choose not to answer this question Do you have trouble taking care of your child, family member or friend?: I choose not to answer this question Do you have trouble with day-to-day activities such as bathing, preparing meals, shopping, managing finances, etc.?: I choose not to answer this question Are you currently unemployed and looking for a job?: I choose not to answer this question Are you interested in more education?: I choose not to answer this question Currently or been in a relationship where the following occur: No concerns reported THRIVE Score: 0 AUDIT C Alcohol Use Questionnaire (AUDIT-C) 1. How often do you have a drink containing alcohol?: Monthly or less 2. How many drinks containing alcohol do you have on a typical day when you are drinking?: 1 or 2 3. How often do you have six or more drinks on one occasion?: Never Total Score: 1 Score Reviewed/Action Taken: Yes ESDRAS-7 AMB Questionnaire ESDRAS-7 Date ESDRAS - 7 assessed: 04/15/24 Feeling nervous, anxious, or on edge: 0 = Not at all Not being able to stop or control worryin = Not at all Worrying too much about different things: 0 = Not at all Trouble relaxin = Not at all Being so restless that it is hard to sit still: 0 = Not at all Becoming easily annoyed or irritable: 0 = Not at all Feeling afraid as if something awful might happen: 0 = Not at all Total ESDRAS-7 score (0-4 normal; 5-9 mild; 10-14 moderate; 15-21 severe): 0 Source: Developed by Drs. Sanchez Mesa, Corazon Lund, Gaetano Deshpande and colleagues, with an educational erica from [employer] ESDRAS-7 Assessment Billing ESDRAS-7 Assessment Tool: ESDRAS-7 Assessment 85227 Physical exam (Primary Care) Vital Signs: Last Vital Signs Pulse 68 04/15/24 10:39 BP 110/76 04/15/24 10:39 Pulse Ox 97 04/15/24 10:39 Oxygen Delivery Method Room Air 04/15/24 10:39 BMI result Body Mass Index 24.2 Tobacco/Smoking Status: Tobacco use Status Tobacco use date assessed 04/15/24 04/15/24 10:40 Patient Tobacco Use Status Never used Tobacco 04/15/24 10:40 e-Cigarette/Vaping Use Never Used 04/15/24 10:40 PHQ-9: PHQ-9 Score PHQ-9: Total score 0 04/15/24 10:47 Depression Screening Interpretation: Negative Thrive Assessment: Date of Thrive Assessment Date Thrive assessed 04/15/24 04/15/24 10:40 Currently or been in a relationship where the following occur: No concerns reported Coding Level of Care Code Est Pt Prev Care 40-64y(38816) Diagnoses Physical exam Z00.00 Screening PSA (prostate specific antigen) Z12.5 Status post inguinal hernia repair using synthetic patch Z98.890; Z87.19 Additional Codes ESDRAS-7 Assessment Billing - ESDRAS-7 Assessment Tool: ESDRAS-7 Assessment 34671 ([id number]) PHQ-9 - 90452 - PHQ-9 Billing: Yes ([id number]) Assessment & Plan Assessment & Plan (1) Physical exam: Code(s): Z00.00 - Encounter for general adult medical examination without abnormal findings Category: Medical (2) Screening PSA (prostate specific antigen): Code(s): Z12.5 - Encounter for screening for malignant neoplasm of prostate Category: Medical (3) Status post inguinal hernia repair using synthetic patch: Code(s): Z98.890 - Other specified postprocedural states; Z87.19 - Personal history of other diseases of the digestive system Category: Surgical Plan . Orders: Orders Complete Blood Count Auto Diff Today Z00.00 - Encounter for general adult medical examination without abnormal findings Comprehensive [place]. Panel Fast Today Z00.00 - Encounter for general adult medical examination without abnormal findings Lipid Panel Today Z00.00 - Encounter for general adult medical examination without abnormal findings TSH reflex Free T4 Today Z00.00 - Encounter for general adult medical examination without abnormal findings UA CC w/rflx Micro + Cult Today Z00.00 - Encounter for general adult medical examination without abnormal findings Prostate Specific Antigen Scr Today Z12.5 - Encounter for screening for malignant neoplasm of prostate
--- OUTSIDE RECORDS SUMMARY | 2024-04-15 11:52 | XMS_ITS ---
Author Organization [facility] Address [address] [place] [address] Care Team Providers Care Field Staff Name Role Phone MARC WADE Primary Care Provider Jody Zuñiga Jr, Doug Beckman [phone] REASON FOR VISIT pathology Encounters Encounter Location Date Provider Diagnosis [facility] [address] [facility] [address] [place] [address] 10/29/2022 Doug Zuñiga Jr PLAN OF TREATMENT Next Appt Details Provider Name:Doug brannon Jr, 02/14/2025 09:40:00 AM, [address] [facility], [address], [place], [address],
--- OUTSIDE RECORDS SUMMARY | 2024-04-15 11:52 | XMS_ITS ---
Author Organization [facility] Address [address] [place] [address] Care Team Providers Care Masonry Inspector Name Role Phone [email or web address] Primary Care Provider Doug Tejada Jr [phone] ALLERGIES No Known Allergies REASON FOR VISIT Patient presents today for acid reflux MEDICATIONS Medication SIG (Take, Route, Frequency, Duration) [...] Administration Date Status Comme nts Influenza Unknown 02/16/2024 Refused PROBLEMS Problem Type ICD Code Onset Dates Problem Status W/U Status Risk SNOMED Code Notes Problem Diverticulitis (K57.92) Active confirmed 695604774 VITAL SIGNS Temperature 97.5 degrees Fahrenheit 02/16/20 24 Blood pressure systolic 000 mm Hg 02/16/20 24 Blood pressure diastolic 00 mm Hg 024 Height 66 in 02/16/2024 Weight 150 lb 2 oz lbs 02/16/2024 BMI 24.23 kg/m2 02/16/2024 Encounters Encounter Location Date Provider Diagnosis [facility] [address] [place] [address] 02/16/2024 Doug Zuñiga Jr Gastroesophageal reflux disease without esophagitis K21.9 ; Castañeda esophagus K22.70 and Diverticulitis K57.92 ASSESSMENTS Encounter Date Diagnosis Assessment Notes Treatment Notes Treatment Clinical Notes 02/16/2024 Gastroesophageal reflux disease without esophagitis (ICD-10 - K21.9) Gastroesophageal reflux disease material was printed 02/16/2024 Castañeda esophagus (ICD-10 - K22.70) 02/16/2024 Diverticulitis (ICD-10 - K57.92) PLAN OF TREATMENT Treatment Notes Assessment Notes Gastroesophageal reflux dise ase without esophagitis Gastroesophageal reflux disease material was printed Next Appt Details Follow Up: 1 Year, Reason: Provider Name:Doug brannon Jr, 02/14/2025 09:40:00 AM, [address] [place] [address], [address], [place], [address],
--- OUTSIDE RECORDS SUMMARY | 2024-04-15 11:52 | XMS_ITS | Patient Health Record ---
Author Organization [facility] Address [address] [place] [address] Care Team Providers Care Portable Irrigation Operator Name Role Phone MARC WADE Primary Care Provider Doug Tejada Jr Unavailable [phone] ALLERGIES No Known Allergies REASON FOR REFERRAL [...] Status Comme nts Influenza Unknown 08/28/2022 Refused Influenza Unknown 02/16/2024 Refused SOCIAL HISTORY Sex Assigned At : Social History Observation Description Sex Assigned At Unknown PROBLEMS Problem Type ICD Code Onset Dates Problem Status W/U Status Risk SNOMED Code Notes Problem Colon cancer screening (Z12.11) Active confirmed 495796691 Problem Rectal bleeding (K62.5) Active confirmed 81851790 Problem Encounter for other preprocedural examination (Z01.818) Active confirmed 12513759 Problem Castañeda's esophagus without dysplasia (K22.70) Active confirmed 874028647 Problem Diverticulitis (K57.92) Active confirmed 643527254 Problem Gastroesophageal reflux disease without esophagitis (K21.9) Active confirmed 668525849 Problem Castañeda esophagus (K22.70) Active confirmed Castañeda esophagus (102044088) VITAL SIGNS Temperature 97.5 degrees Fahrenheit 02/16/2024 Blood pressure diastolic 00 mm Hg 02/16/2024 Height 66 in 02/16/2024 Blood pressure systolic 000 mm Hg 02/16/2024 Weight 150 lb 2 oz lbs 02/16/2024 BMI 24.23 kg/m2 02/16/2024 Encounters Encounter Location Date Provider Diagnosis [facility] [address] [facility] [address] [place] [address] 11/06/2023 Doug Zuñiga Jr [facility] [address] [facility] [address] [place] [address] 02/16/2024 Doug Zuñiga Jr Gastroesophageal reflux disease without esophagitis K21.9 ; Castañeda esophagus K22.70 and Diverticulitis K57.92 ASSESSMENTS Encounter Date Diagnosis Assessment Notes Treatment Notes Treatment Clinical Notes 02/16/2024 Gastroesophageal reflux disease without esophagitis (ICD-10 - K21.9) Gastroesophageal reflux disease material was printed 02/16/2024 Castañeda esophagus (ICD-10 - K22.70) 02/16/2024 Diverticulitis (ICD-10 - K57.92) PLAN OF TREATMENT Future Test Test Name Order Date UPPER GI ENDOSCOPY 05/05/2014 COLONOSCOPY 05/22/2017 UPPER GI ENDOSCOPY 08/28/2022 COLONOSCOPY 08/28/2022 Next Appt Details Provider Name:Doug brannon , 02/14/2025 09:40:00 AM, [address] [facility], [address], [place], [address], Insurance Providers Payer Name Payer Address Payer Phone Subscriber Number Group Number Insured Name Patient Relationship to Insured Coverage Start Date Coverage End Date [facility] [address] [place] [address] [phone] [id number] CALI CANELA Self - patient is the insured MEDICAL (GENERAL) HISTORY Medical History History ICD Code Gastroesophageal reflux dise ase, with history of Castañeda's esophagus, EGD 11/09, ulcerative esophagitis, repeat EGD in 3 years. Colonoscopy 11/09, normal, ten-year follo wup BPH with lower urinary tract symptoms Microscopic hematuria Left inguinal hernia Surgical History Surgery Date(Month/Year) testicle surgery
--- OUTSIDE RECORDS SUMMARY | 2024-04-15 11:52 | XMS_ITS ---
Author Organization [facility] Address [address] [place] [address] Care Team Providers Care Retail Maintenance Technician Name Role Phone MARC WADE Primary Care Provider Jody Zuñiga Jr, Doug Beckman [phone] REASON FOR VISIT Patient presents today for acid reflux Encounters Encounter Location Date Provider Diagnosis [facility] [address] [facility] [address] [place] [address] 11/06/2023 Doug Zuñiga Jr PLAN OF TREATMENT Next Appt Details Provider Name:Doug brannon Jr, 02/14/2025 09:40:00 AM, [address] [facility], [address], [place], [address],
== END 2024-04-15 11:20 | disposition home or self-care (01) ==
PROVIDERS: PCP Nurse Practitioner Family; Visit Provider Nurse Practitioner Family
DX: Z00.00 Encounter for general adult medical examination without abnormal findings (principal); Z12.5 Encounter for screening for malignant neoplasm of prostate; Z98.890 Other specified postprocedural states; Z87.19 Personal history of other diseases of the digestive system

== ENCOUNTER → 2024-04-15 10:14 | Outpatient (BNVA) | payer OTHER, SELFPAY | PROVIDERS: PCP Nurse Practitioner Family; Visit Provider Nurse Practitioner Family | DX: Z00.00 Encounter for general adult medical examination without abnormal findings (principal); Z87.19 Personal history of other diseases of the digestive system; Z98.890 Other specified postprocedural states | CPT/HCPCS: 96127 ==

== ENCOUNTER 2024-06-08 14:00 | Outpatient (AMB) | payer OTHER, SELFPAY ==
--- NOTE | 2024-06-08 14:22 | A.OFFPC_ITS ---
Vital Signs 06/08/24 14:23 Height 5 ft 6 in Weight 147 lb BMI 23.7 BP 118/70 Blood Pressure Location Rt brachial Position Sitting Respiration 20 Pulse 88 Pulse Source Pulse Oximeter Temp 98.7 F Temp Source Oral Pulse Oximetry (%) 96 Oxygen Delivery Method Room Air Intake Visit Reasons: Discuss WC Injury/Extension in being out of work Intake Note: Pt isb here today for a WC follow up. Allergies No Known Allergies Allergy (Verified 06/08/24 14:27) Tobacco use date assessed: 06/08/24 Dental Screening Dental Screen Date: 04/15/24 HPI Discuss WC Injury/Extension in being out of work HPI Details Chief Complaint Persistent numbness and tenderness in the left inguinal area following hernia repair History of Present Illness The patient is a 58-year-old male presenting with persistent postoperative symptoms following an inguinal hernia repair performed on March 19, 2024. The surgical intervention included mesh placement, prompted by a work-related injury the previous year. Post-surgically, the patient has been experiencing ongoing numbness and tenderness localized to the left inguinal area, extending slightly above the healed incision. He categorically denies symptoms indicative of infection, such as fever, chills, or drainage from the site, and notes that urination remains unaffected. The patient understands that this postoperative numbness and tenderness may continue indefinitely and is likely related to the mesh implantation as well. There are no indications of hernia recurrence. Social History - Employment: Involved in a [employer] case - Activity: Instructed to maintain some level of activity without lifting Health Maintenance Review of Systems - General: Denies fever, chills - Genitourinary: No issues with urinatio n - Respiratory: No respiratory complaints ; lungs clear -denies any cp, sob Physical Exam General: Cooperative, healthy appearing, comfortable, no acute distress and well developed Orientation: Patient oriented x3 Limitations: No limitations Head: Normal to inspection Ears: Hearing grossly normal bilaterally Nose: Normal external nose present Face and sinus: Normal facial exam Eyes: Appearance normal, both eyes and all related structures Neck: Normal visual inspection and Yes full ROM Respiratory: Normal respiratory effort and able to speak in complete sentences. Clear to auscultation bilaterally Cardiovascular: Regular rate and rhythm. Normal S1 and S2 GI: Normal to inspection. Soft to palpation and nontender. Left inguinal area with slight tenderness and numbness around the incision site. Healed scar noted with no signs of cellulitis or infection. Skin: No rashes or lesions noted Neuro: Patient oriented x3 Extremities: Normal to inspection Results Plan The patient is to remain out of work for two more months to allow adequate postoperative recovery without lifting, to reduce strain and prevent recurrence or complications. The discomfort and numbness in the left inguinal area may persist due to mesh placement and have been discussed with the patient. The patient is encouraged to be as active as possible without compromising the healing process. A follow-up is planned to reassess. Discussion Notes I discussed with the patient that the postoperative numbness and tenderness might continue, possibly indefinitely, due to the mesh placement/nerve involvement. I reassured him that the absence of fever, chills, or drainage is a positive sign and advised him against lifting to prevent exacerbation of symptoms. The importance of staying active was emphasized, and a follow-up in two months was planned to reassess work readiness. The patient verbalized understanding of these points and agreed to the proposed plan. Patient Instructions - Do not lift heavy objects as it may ca use strain or complications - Stay as active as possible without lif ting to aid recovery - Return for reevaluation of work readin ess in two months - Seek immediate care if fever, chills, or draining occur [facility] Medical History Diverticulitis Microscopic hematuria BPH (benign prostatic hyperplasia) H. pylori infection Castañeda esophagus GERD (gastroesophageal reflux disease) Surgical History Recurrent left inguinal hernia (03/19/24) Hx of left inguinal hernia repair History of testicular surgery Hx of colonoscopy Hx of esophagogastroduodenoscopy Social History Housing: House Patient Tobacco Use Status: Never used Tobacco e-Cigarette/Vaping Use: Never Used Second Hand Smoke Exposure: Yes service: No Current occupational status: employed Current occupation: [employer] Current occupational exposures/hazards: No Cognitive needs: No Hearing needs: No Vision needs: No Questionnaire PHQ-9 Over the last 2 weeks, how often have you been bothered by any of the following problems? 3. Trouble falling or staying asleep, or sleeping too much: not at all 4. Feeling tired or having little energy: not at all 5. Poor appetite or overeating: not at all 6. Feeling bad about yourself - or that you are a failure or have let yourself or your family down: more than half the days 7. Trouble concentrating on things, such as reading the newspaper or watching television: more than half the days 8. Moving or speaking so slowly that other people could have noticed. Or the opposite - being so fidgety or restless that you have been moving around a lot more than usual: more than half the days 9. Thoughts that you would be better off or of hurting yourself in some way: not at all Source: Developed by Drs. Sanchez Mesa, Corazon Lund, Gaetano Deshpande and colleagues, with an educational erica from [employer]. Thrive Questionnaire Date Thrive assessed: 06/08/24 I am a: Patient What is your living situation today?: I have a steady place to live Within the past 12 months, did the food you bought not last and you didn't have the money to get more?: Never true Within the past 12 months, did you worry whether your food would run out before you got money to buy more?: Never true Do you have trouble paying for medicines?: No Do you have trouble getting transportation to medical appointments?: No Do you have trouble paying your heating and electricity bill?: No Do you have trouble taking care of your child, family member or friend?: No Do you have trouble with day-to-day activities such as bathing, preparing meals, shopping, managing finances, etc.?: No Are you currently unemployed and looking for a job?: No Are you interested in more education?: I choose not to answer this question THRIVE Score: 0 ESDRAS-7 AMB Questionnaire ESDRAS-7 Date ESDRAS - 7 assessed: 04/15/24 Source: Developed by Drs. Sanchez Mesa, Corazon Lund, Gaetano Deshpande and colleagues, with an educational erica from [employer]. Physical exam (Primary Care) Vital Signs: Last Vital Signs Temp 98.7 F 06/08/24 14:23 Pulse 88 06/08/24 14:23 Resp 20 06/08/24 14:23 BP 118/70 06/08/24 14:23 Pulse Ox 96 06/08/24 14:23 Oxygen Delivery Method Room Air 06/08/24 14:23 BMI result Body Mass Index 23.7 Tobacco/Smoking Status: Tobacco use Status Tobacco use date assessed 06/08/24 06/08/24 14:25 Patient Tobacco Use Status Never used Tobacco 06/08/24 14:25 e-Cigarette/Vaping Use Never Used 06/08/24 14:25 Thrive Assessment: Date of Thrive Assessment Date Thrive assessed 06/08/24 06/08/24 14:25 Coding Level of Care Code Est Pt Level 3 (53890) Diagnoses Status post inguinal hernia repair using synthetic patch Z98.890; Z87.19 Inguinal hernia K40.90 Assessment & Plan Assessment & Plan (1) Status post inguinal hernia repair using synthetic patch: Code(s): Z98.890 - Other specified postprocedural states; Z87.19 - Personal history of other diseases of the digestive system Category: Surgical (2) Inguinal hernia: Code(s): K40.90 - Unilateral inguinal hernia, without obstruction or gangrene, not specified as recurrent Category: Medical Plan .
[2024-06-08 14:23] VITALS: BP 118/70; PULSE 88; RESP 20; TEMP 37.1; O2SAT 96; BMI 23.7
--- OUTSIDE RECORDS SUMMARY | 2024-06-08 16:49 | XMS_ITS ---
Author Organization [facility] Address [address] [place] [address] Care Team Providers Care Manager Landscape Name Role Phone [email or web address] Primary Care Provider Doug Tejada Jr Allergies No Known Allergies REASON FOR VISIT Patient presents today for acid reflux Medications Medication SIG (Take, Route, Frequency, Duration) Notes [...] a day Active Multivitamin Active Aleve Active Immunizations Vaccine Route Administration Date Status Comme nts Influenza Unknown 02/16/2024 Refused Problems Problem Type SNOMED Code ICD Code Onset Dates Problem Status W/U Status Risk Notes Problem 447054850 Diverticulitis (K57.92) Active confirmed Vital Signs Temperature 97.5 degrees Fahrenheit 02/16/20 24 Blood pressure systolic 000 mm Hg 02/16/20 24 Blood pressure diastolic 00 mm Hg 024 Height 66 in 02/16/2024 Weight 150 lb 2 oz lbs 02/16/2024 BMI 24.23 kg/m2 02/16/2024 Encounters Encounter Location Date Provider Diagnosis [facility] [address] [place] [address] 02/16/2024 Doug Zuñiga Jr Gastroesophageal reflux disease without esophagitis K21.9 ; 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 We discussed diet, lifestyle modifications, and weight management. We recommended he continue omeprazole. He is up-to-date on colorectal cancer screening. For his diverticular disease, we discussed high-fiber diet today. 02/16/2024 Castañeda esophagus (ICD-10 - K22.70) We discussed gastroesophageal reflux disease and Castañeda's esophagus today. We discussed diet, lifestyle modifications, and weight management. We recommended he continue omeprazole. He is up-to-date on colorectal cancer screening. For his diverticular disease, we discussed high-fiber diet today. 02/16/2024 Diverticulitis (ICD-10 - K57.92) We discussed gastroesophageal reflux disease and Castañeda's esophagus today. We discussed diet, lifestyle modifications, and weight management. We recommended he continue omeprazole. He is up-to-date on colorectal cancer screening. For his diverticular disease, we discussed high-fiber diet today. Plan Of Treatment Treatment Notes Assessment Notes Gastroesophageal reflux dise ase without esophagitis Gastroesophageal reflux disease material was printed Next Appt Details Follow Up: 1 Year, Reason: Provider Name:Doug brannon , 02/14/2025 09:40:00 AM, [address] [place] [address], [place] [address], [place], [address], Progress Notes * CALI CANELADOB: 7 (58 yo M)Acc No.[id number]:02/16/2024 Progress Notes Patient:?ADRIÁN CANELAGARDO Provider:?Doug Zuñiga MD :1965???Age:58 Y???Sex:Male Kobi e:02/16/2024 Address:[address] [place] [address], [id number] Pcp:MARC WADE Subjective: * Chief Complaints: * ???1. Patient presents today for acid reflux. * HPI: ???New symptom(s):? The patient is a pleasant 58-year-old man seen today in followup. He was last seen for upper endoscopy and colonoscopy for followup of Castañeda's esophagus and colon cancer screening in October 2022. Colonoscopy was normal and ten-year followup was recommended. The endoscopy showed reflux and no H. pylori. Changes of esophagitis were noted but there was no glandular epithelium present. We reviewed this today. ?He reports reflux symptoms have been under good control omeprazole 40 mg daily. He has no dysphagia, hematemesis, or melena. ?He was seen in the emergency department in November and diagnosed with diverticulitis. CT scanning showed no complications and he was treated with antibiotics. We discussed this today and reviewed records. We recommended a high-fiber diet. * Medical History:?Gastroesoph ageal reflux disease, with history of Castañeda's esophagus, EGD 11/09, ulcerative esophagitis, repeat EGD in 3 years., Colonoscopy 11/09, normal, ten-year followup, BPH with lower urinary tract symptoms, Microscopic hematuria, Left inguinal hernia. * Surgical History:?testicle s urgery . * Family History:?Father: dece ased, diagnosed with Diabetes.?Mother: alive, diagnosed with Diabetes, HTN (hypertension).? No family history of colon cancer or liver cancer. * Social History:?Tobacco Use:?Tobacco Use/Smoking?Are you a: nonsmoker.?Drugs/Alcohol:?Alcohol Screen?Points: 0, Interpretation: Negative.?Miscellaneous:?Marital status: single. Occupation: [employer]. * Medications:?Taking MiraLax (colon prep) 17 GM/SCOOP Powder mixed with Gatorade or Crystal Light Orally begin at 5:00 p.m. the day before the procedure, Taking Tamsulosin HCl 0.4 MG Capsule 1 capsule Orally Once a day, Taking Omeprazole 40 MG Capsule Delayed Release 1 capsule Orally Once a day, Taking Multivitamin , Taking Aleve , Medication List reviewed and reconciled with the patient * Allergies:?N.K.D.A. Objective: * Vitals:?Wt: 150 lb 2 oz, Ht: 66 in, BMI:24.23 Index, BP: 000/00 mm Hg, Temp: 97.5. * Examination: ???General Examination: ???On examination today, he appears well. Skin is anicteric. Lungs are clear. Heart shows regular rate and rhythm. Abdomen is soft without focal mass or tenderness. Extremities are without edema. Assessment: * Assessment: 1.?Gastroesophageal reflux d isease without esophagitis - K21.9 (Primary)?2.?Castañeda esophagus - K22.70?3.?Diverticulitis - K57.92? We discussed gastroesophagea l reflux disease and Castañeda's esophagus today. We discussed diet, lifestyle modifications, and weight management. We recommended he continue omeprazole. He is up-to-date on colorectal cancer screening. For his diverticular disease, we discussed high-fiber diet today. Plan: * Treatment: * Immunizations:? Influenza (Not administered - Refused: Patient decision) * Procedure Codes:?3017F COLOR ECTAL CA SCREEN DOC REV, G9745 DOC RSN FOR NOT SCREEN/REC F/U HBP * Follow Up:?1 Year * * Sign off status: Completed true * Provider:?Doug Zuñiga MD Date:?1 Generated for Printi gio/Syed/eTransmitting on:?06/08/2024 04:49 PM EDT History and Physical Notes * HPI (History of Present Illness) Category Sub-Category Detail Notes Category Not es New symptom(s) The patient is a pleasant 58-year-old man seen today in followup. He was last seen for upper endoscopy and colonoscopy for followup of Castañeda's esophagus and colon cancer screening in October 2022. Colonoscopy was normal and ten-year followup was recommended. The endoscopy showed reflux and no H. pylori. Changes of esophagitis were noted but there was no glandular epithelium present. We reviewed this today. He reports reflux symptoms have been under good control omeprazole 40 mg daily. He has no dysphagia, hematemesis, or melena. He was seen in the emergency department in November and diagnosed with diverticulitis. CT scanning showed no complications and he was treated with antibiotics. We discussed this today and reviewed records. We recommended a high-fiber diet. Examination Category Sub-Category Detail Notes Category Not es General Examination On exami nation today, he appears well. Skin is anicteric. Lungs are clear. Heart shows regular rate and rhythm. Abdomen is soft without focal mass or tenderness. Extremities are without edema.
--- OUTSIDE RECORDS SUMMARY | 2024-06-08 16:49 | XMS_ITS | Patient Health Record ---
Author Organization [facility] Address [address] [place] [address] Care Team Providers Care Ophthalmology Assistant Name Role Phone MARC WADE Primary Care Provider Doug Tejada Jr Unavailable Allergies No Known Allergies Reason For Referral No Information Medications Medication SIG (Take, Route, Frequency, Duration) [...] Unknown 08/28/2022 Refused Influenza Unknown 02/16/2024 Refused Problems Problem Type SNOMED Code ICD Code Onset Dates Problem Status W/U Status Risk Notes Problem 508034798 Colon cancer screening (Z12.11) Active confirmed Problem 04971870 Rectal bleeding (K62.5) Active confirmed Problem 35207249 Encounter for ot her preprocedural examination (Z01.818) Active confirmed Problem 200646051 Castañeda's esopha amina without dysplasia (K22.70) Active confirmed Problem 409008150 Diverticulitis (K57.92) Active confirmed Problem 832048944 Gastroesophageal reflux disease without esophagitis (K21.9) Active confirmed Problem Castañeda esophagus (411964819) Castañeda esophagus (K22.70) Active confirmed Vital Signs Temperature 97.5 degrees Fahrenheit 02/16/2024 Blood pressure diastolic 00 mm Hg 02/16/2024 Height 66 in 02/16/2024 Blood pressure systolic 000 mm Hg 02/16/2024 Weight 150 lb 2 oz lbs 02/16/2024 BMI 24.23 kg/m2 02/16/2024 Encounters Encounter Location Date Provider Diagnosis [facility] [address] [place] [address] 02/16/2024 Doug Zuñiga Jr Gastroesophageal reflux disease [...] discussed high-fiber diet today. Plan Of Treatment Future Test Test Name Order Date UPPER GI ENDOSCOPY 05/05/2014 COLONOSCOPY 05/22/2017 UPPER GI ENDOSCOPY 08/28/2022 COLONOSCOPY 08/28/2022 Next Appt Details Provider Name:Doug brannon Jr, 02/14/2025 09:40:00 AM, [address], [address], [place], [address], Insurance Providers Payer Name Payer Address Payer Phone Subscriber Number Group Number Insured Name Patient Relationship to Insured Coverage Start Date Coverage End Date [employer] [address] [place] [address] [id number] CALI CANELA Self - patient is the insured Medical (General) History Medical History History ICD Code Gastroesophageal reflux dise ase, with history of Castañeda's esophagus, EGD 11/09, ulcerative esophagitis, repeat EGD in 3 years. Colonoscopy 11/09, normal, ten-year follo wup BPH with lower urinary tract symptoms Microscopic hematuria Left inguinal hernia Surgical History Surgery Date(Month/Year) testicle surgery
--- OUTSIDE RECORDS SUMMARY | 2024-06-08 16:49 | XMS_ITS ---
Author Organization [facility] Address [address] [place] [address] Care Team Providers Care Property Site Manager Name Role Phone MARC WADE Primary Care Provider Jody Zuñiga Jr, Doug Beckman [phone] REASON FOR VISIT Patient presents today for acid reflux Encounters Encounter Location Date Provider Diagnosis [facility] [address] [place] [address] 11/06/2023 Doug Zuñiga Jr Plan Of Treatment Next Appt Details Provider Name:Doug brannon Jr, 02/14/2025 09:40:00 AM, [address], [address], [place], [address], Progress Notes * CALI CANELADOB: 7 (58 yo M)Acc No.[id number]:11/06/2023 Progress Notes Patient:?CALI CANELA Provider:?Doug Zuñiga MD :1965???Age:57 Y???Sex:Male Kobi e:11/06/2023 Address:[address] [place] [address], [place], [place] Pcp:MARC WADE Subjective: * Chief Complaints: * ???1. Patient presents today for acid reflux. * Medical History:? Objective: * Vitals:? Assessment: Plan: * Treatment: * * The named appointment provid er may or may not be the originator of this progress note, and it is not deemed complete until electronically signed by the appointment provider. Sign off status: Pending * Provider:?Doug Zuñiga MD Date:?0 11/06/2023 Generated for Safia powers/Syed/Claribel on:?06/08/2024 04:49 PM EDT
== END 2024-06-08 15:07 | disposition home or self-care (01) ==
LOC: HO.HMCC 14:01
PROVIDERS: PCP Nurse Practitioner Family; Visit Provider Nurse Practitioner Family
DX: Z98.890 Other specified postprocedural states (principal); Z87.19 Personal history of other diseases of the digestive system; K40.90 Unilateral inguinal hernia, without obstruction or gangrene, not specified as recurrent

== ENCOUNTER → 2024-06-08 14:00 | Outpatient (BNVA) | payer OTHER, SELFPAY | PROVIDERS: PCP Nurse Practitioner Family; Visit Provider Nurse Practitioner Family | DX: T81.89XA Other complications of procedures, not elsewhere classified, initial encounter (principal); Z87.19 Personal history of other diseases of the digestive system | CPT/HCPCS: 99212 ==

== ENCOUNTER 2024-10-07 06:46 | Outpatient (REF) | payer OTHER, SELFPAY ==
[2024-10-07 07:01] LABS: MANUAL DIFF FLAG NO
[2024-10-07 07:19] LABS: Hematocrit 45.8 % (42.0-52.0); Hemoglobin 16.2 g/dl (14.0-18.0); Imm Gran Abs Auto 0.02 X10*3/uL (0.00-0.03); Imm Gran Pct Auto 0.5 % (0.0-0.4); Lymphocytes Absolute Auto 1.6 X10*3/uL (1.2-4.9); Mean Corpuscular HGB Conc 35.4 g/dl (31.0-36.0); Mean Corpuscular Hemoglobin 31.2 pg (27.0-33.0); Mean Corpuscular Volume 88.2 fL (80.0-98.0); NRBC Abs Auto 0.000 X10*3/uL (0.0-0.012); NRBC Pct Auto 0.0 /100WBC (0.0-0.2); Platelet Count 201 X10*3/uL (160-400); Red Blood Count 5.19 X10*6/uL (4.60-5.80); White Blood Count 4.1 X10*3/uL (4.8-10.8)
[2024-10-07 07:46] LABS: Appearance Urine Clear; Glucose Urine UA Negative (Negative); PH 6.0 (5.0-9.0); Specific Gravity - Urine 1.025 (1.005-1.025); UMIC TRIGGER UACC YES
[2024-10-07 08:06] LABS: Alanine Aminotransferase 20 U/L (0-40); Albumin Level 4.4 g/dL (3.5-5.0); Alkaline Phosphatase 47 U/L (39-117); Anion Gap 11 (12-20); Aspartate Amino Transferase 23 U/L (5-37); Blood Urea Nitrogen 18 mg/dL (9-16); Calcium 9.1 mg/dL (8.4-10.2); Carbon Dioxide 28 mmol/L (22-29); Chloride 106 mmol/L (96-108); Cholesterol 186 mg/dL (<200); Estimated Glomerular Filt Rate > 60; HDL Cholesterol 59 mg/dL (>40); Potassium 4.4 mmol/L (3.3-5.1); Sodium 141 mmol/L (135-145); Total Protein 6.6 g/dL (6.5-8.0); Triglycerides 72 mg/dL (<150)
== END 2024-10-07 06:47 | disposition home or self-care (01) ==
LOC: HO.LAB 06:46
PROVIDERS: PCP Nurse Practitioner Family; Visit Provider Nurse Practitioner Family
DX: Z00.00 Encounter for general adult medical examination without abnormal findings (principal); Z12.5 Encounter for screening for malignant neoplasm of prostate
CPT/HCPCS: 36415; 80053; 80061; 81001; 84153; 84443; 85025

== ENCOUNTER 2024-10-11 09:47 | Outpatient (AMB) | payer OTHER, SELFPAY ==
[2024-10-11 09:58] VITALS: BP 118/78; PULSE 71; RESP 16; TEMP 36.8; O2SAT 96; BMI 24.9
--- NOTE | 2024-10-11 09:58 | MHC.PC.OV ---
Vital Signs 10/11/24 09:58 Height 5 ft 6 in Weight 154 lb BMI 24.9 BP 118/78 Blood Pressure Location Rt brachial Position Sitting Respiration 16 Pulse 71 Pulse Source Pulse Oximeter Temp 98.2 F Temp Source Oral Pulse Oximetry (%) 96 Oxygen Delivery Method Room Air Intake Visit Reasons: 6 month follow up Car Racer Required: No Accompanied by: Self / Same As Patient Allergies No Known Allergies Allergy (Verified 06/08/24 14:27) Tobacco use date assessed: 10/11/24 Dental Screening Dental Screen Date: 10/11/24 Did you have a dental visit in the last 12 months?: Yes Did you have a dental problem in the last 6 months where you did not have access to dental care?: No Was dental information given to patient?: Patient has dentist HPI 6 month follow up HPI Details Chief Complaint The patient presents with discomfort in the left inguinal region following hernia repair. History of Present Illness The patient is a 58-year-old male presenting with postoperative discomfort in the left inguinal region following hernia repair. The hernia repair was performed on March 19, 2024, and since then, the patient has experienced significant discomfort in the left inguinal region, particularly around the scar and the inguinal area itself. He denies any active swelling, redness, or discharge in the area. The patient reports slight tenderness upon palpation of the area, but no signs of infection have been noted. A healed scar is present in the left inguinal region, and there are no signs of a recurrent hernia or infection. The patient has been experiencing this discomfort for a considerable period and is scheduled for a repeat CT scan to further evaluate the condition. The original surgeon is no longer available, so the patient will follow up with a different provider in the general surgery department in two days. Social History Health Maintenance Review of Systems - Integumentary: Denies swelling, redness, or discharge in the left inguinal region - Constitutional: Denies fever or chills Physical Exam General: Cooperative, healthy appearing, comfortable, no acute distress and well developed Orientation: Patient oriented x3 Limitations: No limitations Head: Normal to inspection Ears: Hearing grossly normal bilaterally Nose: Normal external nose present Face and sinus: Normal facial exam Eyes: Appearance normal, both eyes and all related structures Neck: Normal visual inspection and Yes full ROM Respiratory: Normal respiratory effort and able to speak in complete sentences. Clear to auscultation bilaterally Cardiovascular: Regular rate and rhythm. Normal S1 and S2 GI/: Normal to inspection. Soft to palpation and slight tenderness in the left inguinal region, no signs of infection noted Skin: No rashes or lesions noted, healed scar in the left inguinal region Neuro: Patient oriented x3 Extremities: Normal to inspection Results Plan A repeat CT scan has been ordered to evaluate the postoperative discomfort in the left inguinal region. The patient is scheduled to follow up with the general surgery department in two days for further assessment and management. Discussion Notes I discussed with the patient the plan to obtain a repeat CT scan to assess the discomfort in the left inguinal region. I informed him about the follow-up appointment with the general surgery department in two days for further evaluation. Patient Instructions - Follow up with the general surgery department in two days. - Undergo the scheduled CT scan as ordered. [facility] Medical History Diverticulitis Microscopic hematuria BPH (benign prostatic hyperplasia) H. pylori infection Castañeda esophagus GERD (gastroesophageal reflux disease) Surgical History Recurrent left inguinal hernia (03/19/24) Hx of left inguinal hernia repair History of testicular surgery Hx of colonoscopy Hx of esophagogastroduodenoscopy Social History Housing: House Patient Tobacco Use Status: Never used Tobacco e-Cigarette/Vaping Use: Never Used Second Hand Smoke Exposure: Yes service: No Current occupational status: employed Current occupation: [employer] Current occupational exposures/hazards: No Cognitive needs: No Hearing needs: No Vision needs: No Questionnaire PHQ-9 Over the last 2 weeks, how often have you been bothered by any of the following problems? 1. Little interest or pleasure in doing things: nearly every day 2. Feeling down, depressed, or hopeless: nearly every day 3. Trouble falling or staying asleep, or sleeping too much: not at all 4. Feeling tired or having little energy: not at all 5. Poor appetite or overeating: not at all 6. Feeling bad about yourself - or that you are a failure or have let yourself or your family down: more than half the days 7. Trouble concentrating on things, such as reading the newspaper or watching television: more than half the days 8. Moving or speaking so slowly that other people could have noticed. Or the opposite - being so fidgety or restless that you have been moving around a lot more than usual: more than half the days 9. Thoughts that you would be better off or of hurting yourself in some way: not at all Total score: 12 Depression Screening Interpretation: Negative (denies any si or hi., situational, upset about inguinal discomfort) Depression Screening Done: Yes 04338 - PHQ-9 Billing: Yes Source: Developed by Drs. Sanchez Mesa, Corazon Lund, Gaetano Deshpande and colleagues, with an educational erica from [employer]. Thrive Questionnaire Date Thrive assessed: 06/08/24 I am a: Patient What is your living situation today?: I have a steady place to live Within the past 12 months, did the food you bought not last and you didn't have the money to get more?: Never true Within the past 12 months, did you worry whether your food would run out before you got money to buy more?: Never true Do you have trouble paying for medicines?: No Do you have trouble getting transportation to medical appointments?: No Do you have trouble paying your heating and electricity bill?: No Do you have trouble taking care of your child, family member or friend?: No Do you have trouble with day-to-day activities such as bathing, preparing meals, shopping, managing finances, etc.?: No Are you currently unemployed and looking for a job?: No Are you interested in more education?: I choose not to answer this question Please select the resources that you would like help with: None Currently or been in a relationship where the following occur: No concerns reported THRIVE Score: 0 AUDIT C Alcohol Use Questionnaire (AUDIT-C) 1. How often do you have a drink containing alcohol?: Never Total Score: 0 ESDRAS-7 AMB Questionnaire ESDRAS-7 Date ESDRAS - 7 assessed: 10/11/24 Feeling nervous, anxious, or on edge: 3 = Nearly every day Not being able to stop or control worryin = More than half the days Worrying too much about different things: 3 = Nearly every day Trouble relaxin = Nearly every day Being so restless that it is hard to sit still: 3 = Nearly every day Becoming easily annoyed or irritable: 2 = More than half the days Feeling afraid as if something awful might happen: 0 = Not at all Total ESDRAS-7 score (0-4 normal; 5-9 mild; 10-14 moderate; 15-21 severe): 16 Source: Developed by Drs. Sanchez Mesa, Corazon Lund, Gaetano Deshpande and colleagues, with an educational erica from [employer]. ESDRAS-7 Assessment Billing ESDRAS-7 Assessment Tool: ESDRAS-7 Assessment 59942 (denies any si or hi) Physical exam (Primary Care) Vital Signs: Last Vital Signs Temp 98.2 F 10/11/24 09:58 Pulse 71 10/11/24 09:58 Resp 16 10/11/24 09:58 BP 118/78 10/11/24 09:58 Pulse Ox 96 10/11/24 09:58 Oxygen Delivery Method Room Air 10/11/24 09:58 BMI result Body Mass Index 24.9 Tobacco/Smoking Status: Tobacco use Status Tobacco use date assessed 10/11/24 10/11/24 10:03 Patient Tobacco Use Status Never used Tobacco 10/11/24 10:03 e-Cigarette/Vaping Use Never Used 10/11/24 10:03 PHQ-9: PHQ-9 Score PHQ-9: Total score 12 10/11/24 10:03 Depression Screening Interpretation: Negative (denies any si or hi., situational, upset about inguinal discomfort) Thrive Assessment: Date of Thrive Assessment Date Thrive assessed 06/08/24 10/11/24 10:03 Currently or been in a relationship where the following occur: No concerns reported Coding Level of Care Code Est Pt Level 3 (52379) Diagnoses Inguinal hernia K40.90 Groin discomfort R10.30 Additional Codes PHQ-9 - 74362 - PHQ-9 Billing: Yes ([id number]) ESDRAS-7 Assessment Billing - ESDRAS-7 Assessment Tool: ESDRAS-7 Assessment 93410 ([id number]) Assessment & Plan Assessment & Plan (1) Inguinal hernia: Code(s): K40.90 - Unilateral inguinal hernia, without obstruction or gangrene, not specified as recurrent Category: Medical (2) Groin discomfort: Code(s): R10.30 - Lower abdominal pain, unspecified Category: Medical Plan . Orders: Orders CT abdomen pelvis w IV con Today K40.90 - Unilateral inguinal hernia, without obstruction or gangrene, not specified as recurrent
== END 2024-10-11 10:18 | disposition home or self-care (01) ==
LOC: HO.HMCC 09:48
PROVIDERS: PCP Nurse Practitioner Family; Visit Provider Nurse Practitioner Family
DX: K40.90 Unilateral inguinal hernia, without obstruction or gangrene, not specified as recurrent (principal); R10.30 Lower abdominal pain, unspecified

== ENCOUNTER → 2024-10-11 09:47 | Outpatient (BNVA) | payer OTHER, SELFPAY | PROVIDERS: PCP Nurse Practitioner Family; Visit Provider Nurse Practitioner Family | DX: K21.9 Gastro-esophageal reflux disease without esophagitis (principal); G89.18 Other acute postprocedural pain; R10.30 Lower abdominal pain, unspecified; Z87.19 Personal history of other diseases of the digestive system | CPT/HCPCS: 96127; 99212 ==

== ENCOUNTER 2024-10-13 14:19 | Outpatient (AMB) | payer OTHER, SELFPAY ==
--- NOTE | 2024-10-13 14:21 | MHC.OFFVIS ---
Vital Signs 10/13/24 14:28 Height 5 ft 6 in Weight 156 lb BMI 25.2 BP 127/71 Blood Pressure Location Rt brachial Position Sitting Pulse 75 Intake Visit Reasons: Unilateral inguinal hernia Intake Note: Patient referred by pcp Steve VALLADARES for evaluation and treatment of Unilateral inguinal hernia. Patient c/o: left groin area pain noticed after hernia surgery. Hx of left inguinal hernia repair by Dr. Romero 03-19-2024. Imaging: Abdomen pelvis CT: 12-28-2023 Methods Analyst Data Processing Required: No Accompanied by: Eliceo Allergies No Known Allergies Allergy (Verified 10/13/24 14:25) Medication List - Last Reconciled 10/13/24 by Rico Pimentel MD multivitamin 1 tab PO DAILY omeprazole 40 mg PO DAILY tamsulosin 0.4 mg PO BEDTIME 90 days HPI HPI Unilateral inguinal hernia: Details: He underwent repair of a left inguinal hernia with a mesh with Dr. Romero last February,. He apparently tolerated the procedure well. However, since that time, he says he has been having pain on the inferior aspect of the groin. He said this has not ?severe? but this has been persistent. Denies any palpable mass. [facility] Medical History (Updated 10/13/24 @ 14:42 by Rico Pimentel MD) Left groin pain Diverticulitis Microscopic hematuria BPH (benign prostatic hyperplasia) H. pylori infection Castañeda esophagus GERD (gastroesophageal reflux disease) Surgical History Recurrent left inguinal hernia (03/19/24) Hx of left inguinal hernia repair History of testicular surgery Hx of colonoscopy Hx of esophagogastroduodenoscopy Social History Housing: House Patient Tobacco Use Status: Never used Tobacco e-Cigarette/Vaping Use: Never Used Second Hand Smoke Exposure: Yes service: No Current occupational status: employed Current occupation: [employer] Current occupational exposures/hazards: No Cognitive needs: No Hearing needs: No Vision needs: No Review of Systems Const Denies chills and Denies fever(s) Card Denies chest pain, Denies dyspnea and Denies dyspnea on exertion Resp Denies cough, Denies dyspnea and Denies dyspnea on exertion GI Denies hematochezia and Denies change in bowel habits Denies hematuria and Denies difficulty urinating Musc Denies back pain and Denies limited range of motion Neuro Denies focal weakness and Denies convulsions Psych Denies depression and Denies mood swings Physical Exam Vital Signs: Last Vital Signs Pulse 75 10/13/24 14:28 BP 127/71 10/13/24 14:28 BMI result Body Mass Index 25.2 Const General: comfortable and no acute distress Resp Effort & Inspection: normal respiratory effort Cardio Rate: regular rate GI Other: No palpable recurrent hernia on the left side even with Valsalva, scrotum and testicles unremarkable Palpation (GI): Soft to palpation, not firm and nontender Assessment & Plan Assessment & Plan (1) Left groin pain: Code(s): R10.32 - Left lower quadrant pain Category: Medical Plan: He describes persistent left groin pain after his hernia surgery with Dr. Romero last February,. Current exam does not suggest a recurrent hernia. I will arrange for him to have a CAT scan of the pelvis to rule out an occult recurrence. I will see him in the office thereafter He has a very benign exam otherwise. Coding Level of Care Code Est Pt Level 3 (04389) Diagnoses Left groin pain R10.32
[2024-10-13 14:28] VITALS: BP 127/71; PULSE 75; BMI 25.2
== END 2024-10-13 14:42 | disposition home or self-care (01) ==
LOC: HO.HGS 14:20
PROVIDERS: PCP Nurse Practitioner Family; Visit Provider Surgery
DX: R10.32 Left lower quadrant pain (principal)
CPT/HCPCS: 99213

== ENCOUNTER → 2024-10-13 14:19 | Outpatient (BNVA) | payer OTHER, SELFPAY | PROVIDERS: PCP Nurse Practitioner Family; Visit Provider Surgery | DX: R10.32 Left lower quadrant pain (principal) | CPT/HCPCS: 99212 ==

== ENCOUNTER 2025-01-08 07:32 | Outpatient (REF) | payer OTHER, SELFPAY ==
[2025-01-08 08:11] LABS: MANUAL DIFF FLAG NO
[2025-01-08 09:13] LABS: Hematocrit 48.8 % (42.0-52.0); Hemoglobin 16.7 g/dl (14.0-18.0); Imm Gran Abs Auto 0.03 X10*3/uL (0.00-0.03); Imm Gran Pct Auto 0.6 % (0.0-0.4); Lymphocytes Absolute Auto 1.6 X10*3/uL (1.2-4.9); Mean Corpuscular HGB Conc 34.2 g/dl (31.0-36.0); Mean Corpuscular Hemoglobin 30.4 pg (27.0-33.0); Mean Corpuscular Volume 88.9 fL (80.0-98.0); NRBC Abs Auto 0.000 X10*3/uL (0.0-0.012); NRBC Pct Auto 0.0 /100WBC (0.0-0.2); Platelet Count 221 X10*3/uL (160-400); Red Blood Count 5.49 X10*6/uL (4.60-5.80); White Blood Count 4.8 X10*3/uL (4.8-10.8)
[2025-01-08 09:47] LABS: Appearance Urine Clear; Glucose Urine UA Negative (Negative); PH 5.5 (5.0-9.0); Specific Gravity - Urine 1.020 (1.005-1.025)
[2025-01-08 09:47] LABS: Hemoglobin A1C 92.9666 umol/L
[2025-01-08 10:02] LABS: Alanine Aminotransferase 20 U/L (0-40); Albumin Level 4.4 g/dL (3.5-5.0); Alkaline Phosphatase 54 U/L (39-117); Anion Gap 12 (12-20); Aspartate Amino Transferase 25 U/L (5-37); Blood Urea Nitrogen 21 mg/dL (9-16); Calcium 9.2 mg/dL (8.4-10.2); Carbon Dioxide 28 mmol/L (22-29); Chloride 106 mmol/L (96-108); Cholesterol 203 mg/dL (<200); Estimated Glomerular Filt Rate > 60; HDL Cholesterol 59 mg/dL (>40); Potassium 4.1 mmol/L (3.3-5.1); Sodium 142 mmol/L (135-145); Total Protein 6.8 g/dL (6.5-8.0); Triglycerides 72 mg/dL (<150)
== END 2025-01-08 07:33 | disposition home or self-care (01) ==
LOC: HO.LAB 07:32
PROVIDERS: PCP Nurse Practitioner Family; Visit Provider Counselor Mental Health
DX: F43.25 Adjustment disorder with mixed disturbance of emotions and conduct (principal)
CPT/HCPCS: 36415; 80053; 80061; 81003; 83036; 84146; 84443; 85025

== ENCOUNTER → 2025-01-10 11:59 | Outpatient (REF) | payer OTHER, SELFPAY ==
--- NOTE | 2025-01-10 12:18 | ECG_ITS ---
Test Reason : F43.25 Blood Pressure : */* mmHG Vent. Rate : 72 BPM Atrial Rate : 72 BPM P-R Int : 158 ms QRS Dur : 110 ms QT Int : 396 ms P-R-T Axes : 50 14 46 degrees QTcB Int : 433 ms Normal sinus rhythm Normal ECG When compared with ECG of 19-Mar-2024 20:37, Vent. rate has increased by 26 bpm Referred By: German Trinidad Electronically Signed By: Ady Ramirez
== END ==
LOC: HO.CARD 11:59
PROVIDERS: PCP Nurse Practitioner Family; Visit Provider Psychiatry & Neurology Psychiatry
DX: F43.25 Adjustment disorder with mixed disturbance of emotions and conduct (principal)
CPT/HCPCS: 93005

== ENCOUNTER → 2025-01-10 12:18 | Outpatient (BNV) | payer OTHER, SELFPAY | PROVIDERS: PCP Nurse Practitioner Family; Visit Provider Internal Medicine Cardiovascular Disease | DX: F43.25 Adjustment disorder with mixed disturbance of emotions and conduct (principal) | CPT/HCPCS: 93010 ==